=== PATIENT | female | born 1970 | race African-American/Black ===

== ENCOUNTER 2023-11-20 10:25 | Emergency (ER) | payer MEDICARE, MEDICAID ==
[~2023-11-20] VITALS: Ht 162.6 cm; Wt 74.9 kg
[~2023-11-20 10:25] MED LIST: ASPI81CH43 PO
[2023-11-20 10:30] VITALS: BP 124/61; PULSE 91; RESP 20; O2SAT 98
[2023-11-20 10:41] LABS: Basophils # (auto) 0.1 10 ^3/uL (0-0.2); Eosinophils # (auto) 0 10 ^3/uL (0-0.8); Eosinophils % (auto) 0.4 % (0.0-7.0); Hematocrit 45.5 % (36.0-46.0); Hemoglobin 15.2 g/dL (12.2-16.2); Lymphocytes # (auto) 2.3 10 ^3/uL (0.4-5.4); Lymphocytes % (auto) 25.6 % (10.0-50.0); Mean Corpuscular Hemoglobin 27.5 pg (28.0-32.0); Mean Corpuscular Hgb Conc. 33.3 g/dL (32.0-36.0); Mean Corpuscular Volume 82.7 fL (80.0-100.0); Monocytes # (auto) 0.6 10 ^3/uL (0-1.3); Monocytes % (auto) 6.8 % (0.0-12.0); Neutrophils % (auto) 66.2 % (37.0-80.0); Nucleated Red Blood Cells % 0.1 %; Red Blood Cells 5.51 10^6/uL (4.0-5.20); Red Cell Distribution Width 13.6 % (11.8-14.3)
[2023-11-20 10:58] LABS: Alanine Aminotransferase 14 U/L (7-40); Albumin 5.1 g/dL (3.2-4.8); Alkaline Phosphatase 105 U/L (46-116); Anion Gap 6 (5-15); Aspartate Aminotransferase 15 U/L (13-40); BUN/Creatinine Ratio 9.7 (10.0-20.0); Bilirubin, Total 0.7 mg/dL (0.2-1.0); Blood Urea Nitrogen 6 mg/dL (9-23); Calcium 11.2 mg/dL (8.7-10.4); Carbon Dioxide 30 mmol/L (20-30); Chloride 102 mmol/L (98-107); Glucose 103 mg/dL (74-106); Potassium 3.7 mmol/L (3.5-5.1); Sodium 138 mmol/L (136-145); Total Protein 8.1 g/dL (5.7-8.2)
== END 2023-11-20 13:34 | disposition left against medical advice (07) ==
LOC: ER 10:25
DX: R07.89 Other chest pain (principal); F41.9 Anxiety disorder, unspecified; Z53.21 Procedure and treatment not carried out due to patient leaving prior to being seen by health care provider
CPT/HCPCS: 36415; 80053; 83880; 84484; 85025; 93005

== ENCOUNTER 2024-04-09 09:42 | Emergency (ER) | payer OTHER, MEDICAID ==
[~2024-04-09] VITALS: Ht 162.6 cm; Wt 72.6 kg
[2024-04-09 09:56] VITALS: BP 150/83; PULSE 90; RESP 18; O2SAT 98
== END 2024-04-09 10:55 | disposition left against medical advice (07) ==
LOC: ER 09:42
DX: R06.02 Shortness of breath (principal); Z53.21 Procedure and treatment not carried out due to patient leaving prior to being seen by health care provider

== ENCOUNTER 2024-04-15 19:50 | Emergency (ER) | payer MEDICARE, MEDICAID ==
[~2024-04-15] VITALS: Ht 162.6 cm; Wt 72.7 kg
[2024-04-15 20:08] VITALS: BP 142/85; PULSE 91; RESP 18; O2SAT 98
== END 2024-04-15 20:59 | disposition left against medical advice (07) ==
LOC: ER 19:50
DX: R42 Dizziness and giddiness (principal); Z53.21 Procedure and treatment not carried out due to patient leaving prior to being seen by health care provider

== ENCOUNTER 2024-07-22 13:46 | Emergency (ER) | payer MEDICARE, MEDICAID ==
[~2024-07-22] VITALS: Ht 162.6 cm; Wt 68.0 kg
[2024-07-22 14:06] VITALS: BP 141/92; PULSE 97; RESP 16; O2SAT 98
--- NOTE | 2024-07-22 14:36 | ED.PDOC ---
History of Present Illness HPI Comments No seen by provider Chief Complaint: Ingestion Time Seen by MD: 14:35 Primary Care Provider: SANGEETA Bingham Notes: Nurses Notes, Medications, Allergies Allergies: Coded Allergies: NO KNOWN ALLERGIES (Unverified , 04/13/11) Home Meds Reported Medications Aspirin (Asa) 81 Mg Ch, 162 MG PO DAILY 04/13/11 Mode of Arrival: Ambulatory Past Medical History PAST MEDICAL HISTORY: Denies Surgical History: Denies all surgeries Family History Family History: No family hx of Cancer, No family hx of DM, No family hx of HTN, No family hx of Stroke Social History Smoker: Cigarettes Alcohol: Occasionally Drugs: Denies Drug Use Lives In: Home Physical Exam General Appearance: No Apparent Distress, Normal HEENT: Normal ENT Inspection, Pharynx Normal, TMs Normal Neck: Full Range of Motion, Non-Tender, Normal, Normal Inspection Respiratory: Chest Non-Tender, Lungs Clear, No Accessory Muscle Use, No Respiratory Distress, Normal Breath Sounds Cardiovascular: No Edema, No JVD, No Murmur, No Gallop, Normal Peripheral Pulses, Regular Rate/Rhythm Breast Exam: Deferred Gastrointestinal: No Organomegaly, Non Tender, No Pulsatile Mass, Normal Bowel Sounds, Soft Genitalia: Deferred Pelvic: Deferred Rectal: Deferred Extremities: No calf tenderness, Normal capillary refill, Normal inspection, Normal range of motion, Non-tender, No pedal edema Musculoskeletal : Apperance: Normal Neurologic: Alert, shoemaker custom II-XII nml as Tested, No Motor Deficits, Normal Affect, Normal Mood, No Sensory Deficits Cerebellar Function: Normal Reflexes: Normal Skin: Dry, Normal Color, Warm Lymphatic: No Adenopathy Was a procedure done? Was a procedure done?: No Differential Dx Considerations may include: na X-Ray, Labs, Meds, VS Vital Signs Date Time Temp Pulse Resp B/P (MAP) Pulse Ox O2 Delivery O2 Flow Rate FiO2 07/22/24 14:06 99.4 97 16 141/92 (108) 98 Time of 1ST Reevaluation: 08:19 Reevaluation 1ST: Improved Patient Education/Counseling: Diagnosis, Treatment Family Education/Counseling: Diagnosis, Treatment Departure 1 Departure Time of Disposition: 08:19 Impression: Primary Impression: Patient left without being seen Disposition: LEFT WITHOUT BEING SEEN Condition: Other Critical Care Note Critical Care Time?: No Stability Stability form required: No Heart Score Heart Score: Heart Score Response (Comments) Value History N/A 0 EKG N/A 0 Age N/A 0 Risk Factors N/A 0 Troponin N/A 0 Total 0 INDIRA GOODEN NP Jul 22, 2024 14:36
== END 2024-07-22 15:13 | disposition left against medical advice (07) ==
LOC: ER 13:50
DX: R45.0 Nervousness (principal); T40.5X5A Adverse effect of cocaine, initial encounter; Z53.21 Procedure and treatment not carried out due to patient leaving prior to being seen by health care provider; X58.XXXA Exposure to other specified factors, initial encounter; Y93.89 Activity, other specified; Y92.89 Other specified places as the place of occurrence of the external cause; Y99.8 Other external cause status

== ENCOUNTER 2024-08-04 05:43 | Emergency (ER) | payer OTHER, MEDICAID ==
[~2024-08-04] VITALS: Ht 154.9 cm; Wt 70.1 kg
[2024-08-04 05:52] VITALS: BP 137/89; PULSE 100; RESP 16; O2SAT 98
== END 2024-08-04 08:31 | disposition left against medical advice (07) ==
LOC: ER 05:43
DX: R22.42 Localized swelling, mass and lump, left lower limb (principal); Z53.21 Procedure and treatment not carried out due to patient leaving prior to being seen by health care provider

== ENCOUNTER 2024-08-25 09:06 | Emergency (ER) | payer MEDICARE, MEDICAID ==
[~2024-08-25] VITALS: Ht 162.6 cm; Wt 77.0 kg
[2024-08-25 09:06] VITALS: BP 132/83; RESP 16; O2SAT 99
[2024-08-25 09:11] VITALS: PULSE 89
--- NOTE | 2024-08-25 09:13 | ECG ---
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
== END 2024-08-25 10:46 | disposition left against medical advice (07) ==
LOC: ER 09:06
DX: R00.2 Palpitations (principal); F41.8 Other specified anxiety disorders; Z53.21 Procedure and treatment not carried out due to patient leaving prior to being seen by health care provider
CPT/HCPCS: 93005

== ENCOUNTER 2024-09-24 03:28 | Emergency (ER) | payer MEDICARE, MEDICAID ==
[~2024-09-24] VITALS: Ht 162.6 cm; Wt 72.5 kg
[2024-09-24 03:43] VITALS: BP 142/85; PULSE 83; RESP 16; O2SAT 98
== END 2024-09-24 04:16 | disposition left against medical advice (07) ==
LOC: ER 03:28
DX: R53.1 Weakness (principal); Z53.21 Procedure and treatment not carried out due to patient leaving prior to being seen by health care provider

== ENCOUNTER 2025-01-10 15:07 | Emergency (ER) | payer MEDICARE, MEDICAID ==
[~2025-01-10] VITALS: Ht 162.6 cm; Wt 86.0 kg
[2025-01-10 15:07] VITALS: BP 151/108; TEMP 97.9
[2025-01-10 15:16] VITALS: PULSE 85
[2025-01-10 15:20] VITALS: RESP 20; O2SAT 97
--- NOTE | 2025-01-10 15:20 | ED.PDOC ---
History of Present Illness Chief Complaint: Shortness of Breath Comments pt reports feeling sob, palpitation, weak after using cocaine " all night." pt also smoked marijuana, and tobacco. no cp Time Seen by MD: 15:08 Primary Care Provider: NONE Reviewed Notes: Nurses Notes Allergies: Uncoded Allergies: FLGYL (Allergy, Unknown, 08/25/24) Home Meds Reported Medications Aspirin (Asa) 81 Mg Ch, 162 MG PO DAILY 04/13/11 Information Source: Patient Mode of Arrival: Ambulatory Severity: Mild Timing: Hours Duration: Since onset Past Medical History Past Medical History (Other): anxiety Surgical History: Denies all surgeries DIRECTOR OF FIELD COORDINATION History: No Pertinent DIRECTOR OF FIELD COORDINATION History Family History Family History: No family hx of Cancer, No family hx of DM, No family hx of HTN, No family hx of Stroke Social History Smoker: Cigarettes Alcohol: Occasionally Drugs: Denies Drug Use Lives In: Home Constitutional: reports: weakness; denies: chills, diaphoresis, fatigue, fever, malaise, sweats, others EENTM: denies: blurred vision, double vision, ear bleeding, ear discharge, ear drainage, ear pain, ear ringing, eye pain, eye redness, hearing loss, mouth pain, mouth swelling, nasal discharge, nose bleeding, nose congestion, nose pain, photophobia, tearing, throat pain, throat swelling, voice changes, others Respiratory: reports: SOB at rest; denies: cough, hemoptysis, orthopnea, shortness of breath, SOB with excertion, stridor, wheezing, others Cardiovascular: reports: palpitations; denies: chest pain, dizzy spells, diaphoresis, Dyspnea on exertion, edema, irregular heart beat, left arm pain, lightheadedness, PND, syncope, others Gastrointestinal: denies: abdomen distended, abdominal pain, blood streaked bowels, constipated, diarrhea, dysphagia, difficulty swallowing, hematemesis, melena, nausea, poor appetite, poor fluid intake, rectal bleeding, rectal pain, vomiting, others Genitourinary: denies: abnormal vagina bleeding, burning, dyspareunia, dysuria, flank pain, frequency, hematuria, incontinence, pain, , vagina discharge, urgency, others Neurological: denies: dizziness, fainting, headache, left sided numbness, left sided weakness, numbness, paresthesia, pre-existing deficit, right sided numbness, right sided weakness, seizure, speech problems, tingling, tremors, weakness, others Musculoskeletal: denies: back pain, gout, joint pain, joint swelling, muscle pain, muscle stiffness, neck pain, others Integumetry: denies: bruises, change in color, change in hair/nails, dryness, laceration, lesions, lumps, rash, wounds, others Allergic/Immunocompromised: denies: Difficulty Healing, Frequent Infections, Hives, Itching, others Hematologic/Lymphatic: denies: anemia, blood clots, easy bleeding, easy bruising, swollen glands, others Endocrine: denies: excessive hunger, excessive sweating, excessive thirst, excessive urination, flushing, intolerance to cold, intolerance to heat, unexplained weight gain, unexplained weight loss, others Psychiatric: denies: anxiety, bipolar disorder, depression, hopeless, panic disorder, schizophrenia, sleepless, suicidal, others Physical Exam General Appearance: No Apparent Distress, Normal HEENT: Normal ENT Inspection, Pharynx Normal, TMs Normal Neck: Full Range of Motion, Non-Tender, Normal, Normal Inspection Respiratory: Chest Non-Tender, Lungs Clear, No Accessory Muscle Use, No Respiratory Distress, Normal Breath Sounds Cardiovascular: No Edema, No JVD, No Murmur, No Gallop, Normal Peripheral Pulses, Regular Rate/Rhythm Breast Exam: Deferred Gastrointestinal: No Organomegaly, Non Tender, No Pulsatile Mass, Normal Bowel Sounds, Soft Genitalia: Deferred Pelvic: Deferred Rectal: Deferred Extremities: No calf tenderness, Normal capillary refill, Normal inspection, Normal range of motion, Non-tender, No pedal edema Musculoskeletal : Apperance: Normal Neurologic: Alert, intermediate manager II-XII nml as Tested, No Motor Deficits, Normal Affect, Normal Mood, No Sensory Deficits Cerebellar Function: Normal Reflexes: Normal Skin: Dry, Normal Color, Warm Lymphatic: No Adenopathy Was a procedure done? Was a procedure done?: No Differential Dx Considerations may include: acs, anxiety, arrhythmias, pneumonia. ptx X-Ray, Labs, Meds, VS Vital Signs Date Time Temp Pulse Resp B/P (MAP) Pulse Ox O2 Delivery O2 Flow Rate FiO2 01/10/25 15:20 20 97 Room Air* 0 21 01/10/25 15:16 85 01/10/25 15:07 97.9 86 20 145/101 (116) 97 97.9 151/108 (122) Time of 1ST Reevaluation: 15:40 Reevaluation 1ST: Unchanged Time of 2ND Reevaluation: 16:28 Reevaluation 2ND: pt eloped Patient Education/Counseling: Diagnosis, Treatment, Prognosis, Need For Follow Up Family Education/Counseling: No Family Present Departure 1 Departure Time of Disposition: 16:29 Impression: Primary Impression: Substance abuse Additional Impression: Cocaine abuse Disposition: 07 LEFT AWOL/ELOPED Condition: Other (unknown) Critical Care Note Critical Care Time?: Yes (55 min-critical care time only) Critical care comment: Due to concerns for patients condition deteriorating, the care required my highest level of attention and readiness to intervene. I assessed the patient, reviewed the medical records, ordered the appropriate tests and treatments, then reassessed for results and responsiveness. I communicated with medical personnel and consultants and formulated a plan of care. Total critical care time excludes any procedures Stability Stability form required: No Heart Score Heart Score: Heart Score Response (Comments) Value History Slightly Suspicious 0 EKG Normal 0 Age 45-64 1 Risk Factors No known risk factors 0 Troponin N/A 0 Total 1 RA HERMAN MD Jan 10, 2025 15:20
--- NOTE | 2025-01-10 15:57 | DVH ---
EXAM: XY CHEST PORTABLE TECHNIQUE: Single frontal chest radiograph CLINICAL HISTORY: sob COMPARISON: None Findings/Impression: Frontal chest radiograph demonstrates no acute osseous or superficial soft tissue abnormalities. The trachea is midline. The cardiac silhouette and mediastinum are within normal limits. No pneumothorax, pleural effusions, or consolidations.
--- NOTE | 2025-01-12 12:16 | ECG ---
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
== END 2025-01-10 16:28 | disposition left against medical advice (07) ==
LOC: ER 15:09
DX: F14.10 Cocaine abuse, uncomplicated (principal); F17.210 Nicotine dependence, cigarettes, uncomplicated; F41.9 Anxiety disorder, unspecified; Z79.82 Long term (current) use of aspirin
CPT/HCPCS: 71045; 93005

== ENCOUNTER 2025-04-08 09:13 | Emergency (ER) | payer MEDICARE, MEDICAID | END 2025-04-08 10:15 | disposition left against medical advice (07) | LOC: ER 09:13 | DX: F41.9 Anxiety disorder, unspecified (principal); Z53.21 Procedure and treatment not carried out due to patient leaving prior to being seen by health care provider ==

== ENCOUNTER 2025-04-08 11:07 | Emergency (ER) | payer MEDICARE, MEDICAID ==
[~2025-04-08] VITALS: Ht 162.6 cm; Wt 72.2 kg
[2025-04-08 11:34] VITALS: BP 131/90; RESP 18; TEMP 97.2; O2SAT 95
[2025-04-08] MEDS ORDERED: LORazepam 2MG/ML-1ML VIAL IV ONE (11:45)
[2025-04-08] MEDS ORDERED: SODIUM CHLORIDE 0.9% 1,000 ML IV ONE (11:45)
--- NOTE | 2025-04-08 11:47 | ED.PDOC ---
SOB-HPI HPI Comments A 54 year-old female, with a PMHX of Anxiety, presents to the ED with a chief complaint of Anxiety with associated weakness as of today. Patient denies recently taking medication for Anxiety and additionally reports doing cocaine hours ago. Patient has no further complaints at this time and otherwise denies further associated symptoms of N/V/D, fever, chills, dizziness, chest pain, or palpitations. Chief Complaint: Anxiety Time Seen by MD: 11:37 Primary Care Provider: JUDY Bingham notes: Medications, Allergies Information Source: Patient Mode of Arrival: Ambulatory Severity: Moderate Timing: Hours Duration: Since onset History of: Anxiety Prehospital treatment: None Associated Signs and Symptoms: Anxiety Past Medical History PAST MEDICAL HISTORY: Anxiety Surgical History: Denies all surgeries MACHINE MAINTENANCE SUPERVISOR History: No Pertinent MACHINE MAINTENANCE SUPERVISOR History Family History Family History: No family hx of Cancer, No family hx of DM, No family hx of HTN, No family hx of Stroke Social History Smoker: Cigarettes Alcohol: Occasionally Drugs: Cocaine Lives In: Home Constitutional: denies: chills, diaphoresis, fatigue, fever, malaise, sweats, weakness, others EENTM: denies: blurred vision, double vision, ear bleeding, ear discharge, ear drainage, ear pain, ear ringing, eye pain, eye redness, hearing loss, mouth pain, mouth swelling, nasal discharge, nose bleeding, nose congestion, nose pain, photophobia, tearing, throat pain, throat swelling, voice changes, others Respiratory: reports: others (PER HPI ); denies: cough, hemoptysis, orthopnea, SOB at rest, shortness of breath, SOB with excertion, stridor, wheezing Cardiovascular: denies: chest pain, dizzy spells, diaphoresis, Dyspnea on exertion, edema, irregular heart beat, left arm pain, lightheadedness, palpitations, PND, syncope, others Gastrointestinal: denies: abdomen distended, abdominal pain, blood streaked bowels, constipated, diarrhea, dysphagia, difficulty swallowing, hematemesis, melena, nausea, poor appetite, poor fluid intake, rectal bleeding, rectal pain, vomiting, others Genitourinary: denies: abnormal vagina bleeding, burning, dyspareunia, dysuria, flank pain, frequency, hematuria, incontinence, pain, , vagina discharge, urgency, others Neurological: denies: dizziness, fainting, headache, left sided numbness, left sided weakness, numbness, paresthesia, pre-existing deficit, right sided numbness, right sided weakness, seizure, speech problems, tingling, tremors, weakness, others Musculoskeletal: denies: back pain, gout, joint pain, joint swelling, muscle pain, muscle stiffness, neck pain, others Integumetry: denies: bruises, change in color, change in hair/nails, dryness, laceration, lesions, lumps, rash, wounds, others Allergic/Immunocompromised: denies: Difficulty Healing, Frequent Infections, Hives, Itching, others Hematologic/Lymphatic: denies: anemia, blood clots, easy bleeding, easy bruising, swollen glands, others Endocrine: denies: excessive hunger, excessive sweating, excessive thirst, excessive urination, flushing, intolerance to cold, intolerance to heat, unexplained weight gain, unexplained weight loss, others Psychiatric: denies: anxiety, bipolar disorder, depression, hopeless, panic disorder, schizophrenia, sleepless, suicidal, others All Other Systems: Reviewed and Negative Physical Exam General Appearance: Mild Distress, Normal HEENT: Normal ENT Inspection, Pharynx Normal, TMs Normal Neck: Full Range of Motion, Non-Tender, Normal, Normal Inspection Respiratory: Chest Non-Tender, Lungs Clear, No Accessory Muscle Use, No Respiratory Distress, Normal Breath Sounds Cardiovascular: No Edema, No JVD, No Murmur, No Gallop, Normal Peripheral Pulses, Regular Rate/Rhythm Breast Exam: Deferred Gastrointestinal: No Organomegaly, Non Tender, No Pulsatile Mass, Normal Bowel Sounds, Soft Genitalia: Deferred Pelvic: Deferred Rectal: Deferred Extremities: No calf tenderness, Normal capillary refill, Normal inspection, Normal range of motion, Non-tender, No pedal edema Musculoskeletal : Apperance: Normal Neurologic: Alert, consumer product advisor II-XII nml as Tested, No Motor Deficits, Normal Affect, Normal Mood, No Sensory Deficits Cerebellar Function: Normal Reflexes: Normal Skin: Dry, Normal Color, Warm Lymphatic: No Adenopathy EKG EKG : Pulse Rate (adult): 86 [place]: Normal Cardiac Rhythm: NSR Was a procedure done? Was a procedure done?: No Differential Dx Differential Diagnosis: Anxiety, Asthma X-Ray, Labs, Meds, VS Vital Signs Date Time Temp Pulse Resp B/P (MAP) Pulse Ox O2 Delivery O2 Flow Rate FiO2 04/08/25 11:50 86 04/08/25 11:47 86 04/08/25 11:34 97.2 94 18 131/90 (104) 95 97.2 04/08/25 11:34 18 95 Room Air* 0 21 X-Ray, Labs, Meds, VS Comment A 54 year-old female, with a PMHX of Anxiety, presents to the ED with a chief complaint of Anxiety with associated weakness as of today. Patient arrives alert and oriented, ABC's intact, afebrile, vital signs stable, saturating well in room air Peripheral IV insertion+ labs were ordered. CBC was ordered to exclude anemia, blood loss, or infection. BMP was ordered to exclude electrolyte abnormalities, renal failure, dehydration, hyperglycemia Urinalysis was ordered to rule out UTI or hematuria. Labs in the ED showed (pertinent+ and then pertinent-) Patient eloped from the emergency room Time of 1ST Reevaluation: 12:14 Reevaluation 1ST: Unchanged Patient Education/Counseling: Diagnosis, Treatment Family Education/Counseling: No Family Present SEPSIS Sepsis Screen Physician Orders Urinalysis (04/08/25 11:40) Drug Screen (04/08/25 11:40) Chest Xray 1 View (04/08/25 11:40) [place]ock Iv (04/08/25 ) Vital Signs Date Time Temp Pulse Resp B/P (MAP) Pulse Ox O2 Delivery O2 Flow Rate FiO2 04/08/25 11:50 86 04/08/25 11:47 86 04/08/25 11:34 97.2 94 18 131/90 (104) 95 97.2 04/08/25 11:34 18 95 Room Air* 0 21 Departure 1 Departure Time of Disposition: 12:42 Impression: Primary Impression: Cocaine-induced anxiety disorder Additional Impressions: Cocaine use Eloped from emergency department Disposition: 07 LEFT AWOL/ELOPED Condition: Poor Discharged With: Self Critical Care Note Critical Care Time?: No Stability Stability form required: No Heart Score Heart Score: Heart Score Response (Comments) Value History N/A 0 EKG N/A 0 Age N/A 0 Risk Factors N/A 0 Troponin N/A 0 Total 0 I personally scribed for INDIRA GOODEN NP ([email or web address]) on 04/08/25 at 11:47. Electronically submitted by Ginger Edouard ([email or web address]). I personally scribed for INDIRA GOODEN NP ([email or web address]) on 04/08/25 at 11:50. Electronically submitted by Ginger Edouard ([email or web address]). INDIRA GOODEN NP Apr 08, 2025 11:47
--- NOTE | 2025-04-08 11:49 | ECG ---
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
[2025-04-08 11:50] VITALS: PULSE 86
--- NOTE | 2025-04-08 12:11 | DVH ---
EXAM: XY CHEST XRAY 1 VIEW Indication:pain r/o serious pathology Technique: Single frontal view of the chest was obtained Comparison: XY CHEST PORTABLE on DOS: 01/10/25 FINDINGS: Lines and Tubes: None Lungs: No focal consolidation. Pleura: No effusion. No pneumothorax. Cardiomediastinal contours: Unremarkable Bones: No acute osseous abnormality. IMPRESSION: No acute cardiopulmonary disease.
== END 2025-04-08 12:41 | disposition left against medical advice (07) ==
LOC: ER 11:07
DX: F14.980 Cocaine use, unspecified with cocaine-induced anxiety disorder (principal); F17.210 Nicotine dependence, cigarettes, uncomplicated; Z79.899 Other long term (current) drug therapy
CPT/HCPCS: 71045; 93005

== ENCOUNTER 2025-04-15 11:57 | Emergency (ER) | payer MEDICARE, MEDICAID ==
[~2025-04-15] VITALS: Ht 162.6 cm; Wt 70.0 kg
[2025-04-15 12:03] VITALS: BP 150/96; RESP 19; TEMP 97.9; O2SAT 100
[2025-04-15 12:47] VITALS: PULSE 82
--- NOTE | 2025-04-15 12:47 | ED.PDOC ---
History of Present Illness HPI Comments A 54-YEAR-OLD FEMALE PRESENTS TO ER FOR ANXIETY REACTION AND CHEST TIGHTNESS. PT STATES SHE USED COCAINE INTERMITTENT FOR 15 YEARS. RECENTLY, SHE IS UNDER A LOT OF STRESS AND SHE STARTED USING COCAINE AGAIN LAST NIGHT. AFTER THAT, SHE STARTED WEAKNESS, CHEST TIGHTNESS AND HANDS NUMBNESS AND TINGLING SENSATION. SHE HAS HX OF ANXIETY AND COCAINE USING AGGRAVATED HER ANXIETY REACTION. PT DENIES FEVER, SOB, NAUSEA, VOMITING, HEADACHE, DIZZINESS AND OTHER COMPLAINTS. NO OTHER SYMPTOMS REPORTED AT THIS TIME OF CARE. SHE HAS SCHEDULED TO SEE HER PCP 1:30PM THIS AFTERNOON. Chief Complaint: Anxiety Time Seen by MD: 12:00 Primary Care Provider: JUDY Reviewed Notes: Nurses Notes, Medications, Allergies Allergies: Coded Allergies: Metronidazole (Verified Allergy, Unknown, 03/06/25) Uncoded Allergies: FLGYL (Allergy, Unknown, 08/25/24) Home Meds Reported Medications Aspirin (Asa) 81 Mg Ch, 162 MG PO DAILY 04/13/11 Information Source: Patient Mode of Arrival: Ambulatory Severity: Mild Timing: Hours Duration: Since onset, Hours Prehospital treatment: None Medication Refill: For: Other (ANXIETY WITH CHEST TIGHTNESS POST COCAINE USING ) Past Medical History PAST MEDICAL HISTORY: Anxiety Surgical History: Denies all surgeries 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 FARMWORKER History: No Pertinent 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 FARMWORKER History Family History Family History: No family hx of Cancer, No family hx of DM, No family hx of HTN, No family hx of Stroke Social History Smoker: Cigarettes Alcohol: Occasionally Drugs: Cocaine Lives In: Home Constitutional: reports: others (ANXIOUS); denies: chills, diaphoresis, fatigue, fever, malaise, sweats, weakness EENTM: denies: blurred vision, double vision, ear bleeding, ear discharge, ear drainage, ear pain, ear ringing, eye pain, eye redness, hearing loss, mouth pain, mouth swelling, nasal discharge, nose bleeding, nose congestion, nose pain, photophobia, tearing, throat pain, throat swelling, voice changes, others Respiratory: denies: cough, hemoptysis, orthopnea, SOB at rest, shortness of breath, SOB with excertion, stridor, wheezing, others Cardiovascular: reports: chest pain; denies: dizzy spells, diaphoresis, Dyspnea on exertion, edema, irregular heart beat, left arm pain, lightheadedness, palpitations, PND, syncope, others Gastrointestinal: denies: abdomen distended, abdominal pain, blood streaked bowels, constipated, diarrhea, dysphagia, difficulty swallowing, hematemesis, melena, nausea, poor appetite, poor fluid intake, rectal bleeding, rectal pain, vomiting, others Genitourinary: denies: abnormal vagina bleeding, burning, dyspareunia, dysuria, flank pain, frequency, hematuria, incontinence, pain, , vagina discharge, urgency, others Neurological: reports: tingling; denies: dizziness, fainting, headache, left sided numbness, left sided weakness, numbness, paresthesia, pre-existing deficit, right sided numbness, right sided weakness, seizure, speech problems, tremors, weakness, others Musculoskeletal: denies: back pain, gout, joint pain, joint swelling, muscle pain, muscle stiffness, neck pain, others Integumetry: denies: bruises, change in color, change in hair/nails, dryness, laceration, lesions, lumps, rash, wounds, others Allergic/Immunocompromised: denies: Difficulty Healing, Frequent Infections, Hives, Itching, others Hematologic/Lymphatic: denies: anemia, blood clots, easy bleeding, easy bruising, swollen glands, others Endocrine: denies: excessive hunger, excessive sweating, excessive thirst, excessive urination, flushing, intolerance to cold, intolerance to heat, unexplained weight gain, unexplained weight loss, others Psychiatric: reports: anxiety; denies: bipolar disorder, depression, hopeless, panic disorder, schizophrenia, sleepless, suicidal, others All Other Systems: Reviewed and Negative Physical Exam General Appearance: Mild Distress, Normal, Other (ANXIOUS ) HEENT: Normal ENT Inspection, PERRL/EOMI, Pharynx Normal, TMs Normal Neck: Full Range of Motion, Non-Tender, Normal, Normal Inspection Respiratory: Chest Non-Tender, Lungs Clear, No Accessory Muscle Use, No Resp iratory Distress, Normal Breath Sounds Cardiovascular: No Edema, No JVD, No Murmur, No Gallop, Normal Peripheral Pulses, Regular Rate/Rhythm Breast Exam: Deferred Gastrointestinal: No Organomegaly, Non Tender, No Pulsatile Mass, Normal Bowel Sounds, Soft Genitalia: Deferred Pelvic: Deferred Rectal: Deferred Extremities: No calf tenderness, Normal capillary refill, Normal inspection, Normal range of motion, Non-tender, No pedal edema Musculoskeletal : Apperance: Normal 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 Was a procedure done?: No EKG EKG : Pulse Rate (adult): 82 [place]: Normal Block: None Hypertrophy: None ST: Normal Differential Dx Considerations may include: ANXIETY REACTION, [place], COCAINE ABUSE X-Ray, Labs, Meds, VS Vital Signs Date Time Temp Pulse Resp B/P (MAP) Pulse Ox O2 Delivery O2 Flow Rate FiO2 04/15/25 12:47 82 04/15/25 12:33 82 04/15/25 12:03 97.9 104 19 150/96 100 97.9 Lab Test 04/15/25 12:14 Range/Units Urine Opiates Screen Neg NEGATIVE Urine Fentanyl Screen Neg NEGATIVE Urine Barbiturates Screen Neg NEGATIVE Urine Phencyclidine Screen Neg NEGATIVE Urine Amphetamines Screen Neg NEGATIVE Urine Benzodiazepines Screen Neg NEGATIVE Urine Cocaine Screen Pos NEGATIVE Urine Cannabinoids Screen Pos NEGATIVE X-Ray, Labs, Meds, VS Comment EXTERNAL MEDICAL RECORDS REVIEWED: [NONE] INDEPENDENT HISTORIANS: [NONE] SOCIAL DETERMINANTS OF HEALTH: [NONE] LABS ORDERED: TSH, UDS, UA, CBC, BMP, TROPONIN REVIEWED AND INTERPRETED RESULTS: NONE IMAGING ORDERED: NONE TREATMENTS ORDERED: NONE PROCEDURES PERFORMED: NONE CRITICAL CARE TIME: NONE 13:15: CALLED PT THREE TIMES, NO ANSWER. ELOPED. Time of 1ST Reevaluation: 13:23 Reevaluation 1ST: Unchanged Patient Education/Counseling: Diagnosis, Treatment Family Education/Counseling: Diagnosis, Treatment, No Family Present SEPSIS Sepsis Screen Date sepsis recognized/suspect: Apr 15, 2025 Time Sepsis recognized/suspect: 1203 Recent Procedure: No On Antibiotic Therapy: No Respiratory Rate >20: No Heart Rate >90: No Temp<36 C (96.8 F) or >38.3 C: No SBP <90 or MAP <65 mmHG: No New Acute Mental Status Change: No Is the patient on CPAP, BIPAP,: No Physician Orders Electrocardigram (04/15/25 12:14) Vital Signs Date Time Temp Pulse Resp B/P (MAP) Pulse Ox O2 Delivery O2 Flow Rate FiO2 04/15/25 12:47 82 04/15/25 12:33 82 04/15/25 12:03 97.9 104 19 150/96 100 97.9 Departure 1 Departure Time of Disposition: 13:23 Impression: Primary Impression: Cocaine-induced anxiety disorder Additional Impression: Polysubstance abuse Disposition: 07 LEFT AWOL/ELOPED Condition: Stable Critical Care Note Critical Care Time?: No Stability Stability form required: No Heart Score Heart Score: Heart Score Response (Comments) Value History N/A 0 EKG N/A 0 Age N/A 0 Risk Factors N/A 0 Troponin N/A 0 Total 0 I personally scribed for GISSEL KATHLEEN ([email or web address]) on 04/15/25 at 13:12. Electronically submitted by Sukh Brady ([email or web address]). I personally scribed for GISSEL KATHLEEN ([email or web address]) on 04/15/25 at 13:21. Electronically submitted by Sukh Brady ([email or web address]). GISSEL KATHLEEN Apr 15, 2025 12:47
[2025-04-15 13:10] LABS: Cannabinoid Screen, Urine Pos (NEGATIVE)
[2025-04-15 13:11] LABS: Amphetamine Screen, Urine Neg (NEGATIVE); Barbiturate Scree,Urine Neg (NEGATIVE); Benzodiazephine Screen, Urine Neg (NEGATIVE); Cocaine Screen, Urine Pos (NEGATIVE); Opiate Scree,Urine Neg (NEGATIVE); Phencyclidine Screen, Urine Neg (NEGATIVE)
--- NOTE | 2025-04-16 06:25 | ECG ---
[facility] Test Date: 2025-04-15 Test Time: 12:33:07 Pat Name: KENISHA MCMILLAN Department: [facility] ED Patient ID: [id number] Room: Gender: F Director Of Aviation: EUGENIO : 1970 Requested By: GISSEL KATHLEEN Order Number: [id number] Reading MD: Al Dexter Measurements Intervals [place] Rate: 82 P: 58 MN: 158 QRS: 27 QRSD: 82 T: 26 QT: 356 QTc: 416 Interpretive Statements Sinus rhythm Probable left atrial enlargement Abnormal R-wave progression, early transition Electronically Signed On 04-16-2025 11:20:09 PDT by Al Dexter Please click the below link to view image of tracing.
== END 2025-04-15 13:29 | disposition left against medical advice (07) ==
LOC: ER 11:57
DX: F14.180 Cocaine abuse with cocaine-induced anxiety disorder (principal); F15.10 Other stimulant abuse, uncomplicated; F17.210 Nicotine dependence, cigarettes, uncomplicated; Z88.1 Allergy status to other antibiotic agents; Z79.899 Other long term (current) drug therapy
CPT/HCPCS: 80307; 93005

== ENCOUNTER 2025-04-20 10:35 | Emergency (ER) | payer BC, MEDICARE, MEDICAID ==
[~2025-04-20] VITALS: Ht 162.6 cm; Wt 65.0 kg
[2025-04-20 10:36] VITALS: BP 180/104; RESP 16; TEMP 97.8; O2SAT 95
--- NOTE | 2025-04-20 11:13 | ED.PDOC ---
HPI Comments This is a 54 year old female presenting to the ED with chief complaint of chest pain. Patient reports that she begun to experience chest tightness after using cocaine about 3 hours ago. Patient relays that she feels like her heart is pounding with associated SOB. Patient denies any numbness, weakness, tingling, dizziness, fever, or chills. Chief Complaint: Chest Pain Time Seen by MD: 11:12 Primary Care Provider: JUDY Reviewed Notes: Nurses Notes, Medications, Allergies Allergies: Coded Allergies: Metronidazole (Verified Allergy, Unknown, 03/06/25) Uncoded Allergies: FLGYL (Allergy, Unknown, 08/25/24) Home Meds Reported Medications Aspirin (Asa) 81 Mg Ch, 162 MG PO DAILY 04/13/11 Information Source: Patient Mode of Arrival: Ambulatory Severity: Moderate Timing: Hours Duration: Since onset Prehospital treatment: None Location: Chest (L) Radiation: No Radiation Quality: Tightness Onset: Other (After cocaine use) Cardiac Risk Factors: Drugs PE Risk Factors: None History of: Similar pain in past Past Medical History PAST MEDICAL HISTORY: Anxiety Surgical History: Denies all surgeries DYE WORKER History: No Pertinent DYE WORKER History Family History Family History: No family hx of Cancer, No family hx of DM, No family hx of HTN, No family hx of Stroke Social History Smoker: Cigarettes Alcohol: Occasionally Drugs: Cocaine Lives In: Home Constitutional: denies: chills, diaphoresis, fatigue, fever, malaise, sweats, weakness, others EENTM: denies: blurred vision, double vision, ear bleeding, ear discharge, ear drainage, ear pain, ear ringing, eye pain, eye redness, hearing loss, mouth pain, mouth swelling, nasal discharge, nose bleeding, nose congestion, nose pain, photophobia, tearing, throat pain, throat swelling, voice changes, others Respiratory: reports: shortness of breath; denies: cough, hemoptysis, orthopnea, SOB at rest, SOB with excertion, stridor, wheezing, others Cardiovascular: reports: chest pain, palpitations; denies: dizzy spells, diap horesis, Dyspnea on exertion, edema, irregular heart beat, left arm pain, lightheadedness, PND, syncope, others Gastrointestinal: denies: abdomen distended, abdominal pain, blood streaked bowels, constipated, diarrhea, dysphagia, difficulty swallowing, hematemesis, melena, nausea, poor appetite, poor fluid intake, rectal bleeding, rectal pain, vomiting, others Genitourinary: denies: abnormal vagina bleeding, burning, dyspareunia, dysuria, flank pain, frequency, hematuria, incontinence, pain, , vagina discharge, urgency, others Neurological: denies: dizziness, fainting, headache, left sided numbness, left sided weakness, numbness, paresthesia, pre-existing deficit, right sided numbness, right sided weakness, seizure, speech problems, tingling, tremors, weakness, others Musculoskeletal: denies: back pain, gout, joint pain, joint swelling, muscle pain, muscle stiffness, neck pain, others Integumetry: denies: bruises, change in color, change in hair/nails, dryness, laceration, lesions, lumps, rash, wounds, others Allergic/Immunocompromised: denies: Difficulty Healing, Frequent Infections, Hives, Itching, others Hematologic/Lymphatic: denies: anemia, blood clots, easy bleeding, easy bruising, swollen glands, others Endocrine: denies: excessive hunger, excessive sweating, excessive thirst, excessive urination, flushing, intolerance to cold, intolerance to heat, unexplained weight gain, unexplained weight loss, others Psychiatric: denies: anxiety, bipolar disorder, depression, hopeless, panic disorder, schizophrenia, sleepless, suicidal, others All Other Systems: Reviewed and Negative Physical Exam General Appearance: Moderate Distress, Normal HEENT: Normal ENT Inspection, Pharynx Normal, TMs Normal Neck: Full Range of Motion, Non-Tender, Normal, Normal Inspection Respiratory: Chest Non-Tender, Lungs Clear, No Accessory Muscle Use, No Respiratory Distress, Normal Breath Sounds Cardiovascular: No Edema, No JVD, No Murmur, No Gallop, Normal Peripheral Pulses, Regular Rate/Rhythm Breast Exam: Deferred Gastrointestinal: No Organomegaly, Non Tender, No Pulsatile Mass, Normal Bowel Sounds, Soft Genitalia: Deferred Pelvic: Deferred Rectal: Deferred Extremities: No calf tenderness, Normal capillary refill, Normal inspection, Normal range of motion, Non-tender, No pedal edema Musculoskeletal : Apperance: Normal 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 Was a procedure done?: No CP Differential Dx Differential Diagnosis: A-fib, A-Flutter, Angina, Anxiety / Panic Attack, Atrial Dysrhythmia, Electrolyte Disorder X-Ray, Labs, Meds, VS Vital Signs Date Time Temp Pulse Resp B/P (MAP) Pulse Ox O2 Delivery O2 Flow Rate FiO2 04/20/25 11:36 89 04/20/25 11:13 108 04/20/25 10:42 108 04/20/25 10:36 97.8 115 16 180/104 95 97.8 Lab Test 04/20/25 11:34 04/20/25 11:24 Range/Units Sodium Level 138 136-145 mmol/L Potassium Level 3.4 L 3.5-5.1 mmol/L Chloride Level 103 98-107 mmol/L Carbon Dioxide Level 23 20-31 mmol/L Anion Gap 12 5-15 Blood Urea Nitrogen 6 L 9-23 mg/dL Creatinine 0.62 0.550-1.02 mg/dL Glomerular Filtration Rate Calc 105 >90 mL/min BUN/Creatinine Ratio 9.7 L 10.0-20.0 Serum Glucose 116 H 74-106 mg/dL Calcium Level 9.5 8.7-10.4 mg/dL Troponin I High Sensitivity < 3 L </=34 ng/L Patient alert. Had cocaine. Vitals stable. Answering questions pain Cardiac marker within normal limits. Potassium slightly low. Was given potassium. Counseled patient on effects of using drugs. EKG reviewed does not show any acute changes. Explained to the patient. Was told to follow up with her primary care physician. Was told to come back if there is any problem. Time of 1ST Reevaluation: 12:09 Reevaluation 1ST: Unchanged Patient Education/Counseling: Diagnosis, Treatment Family Education/Counseling: No Family Present SEPSIS Sepsis Screen Date sepsis recognized/suspect: Apr 20, 2025 Time Sepsis recognized/suspect: 1041 Recent Procedure: No On Antibiotic Therapy: No Respiratory Rate >20: No Heart Rate >90: Yes Temp<36 C (96.8 F) or >38.3 C: No SBP <90 or MAP <65 mmHG: No New Acute Mental Status Change: No Is the patient on CPAP, BIPAP,: No Physician Orders Electrocardigram (04/20/25 10:46) Electrocardigram (04/20/25 11:46) Electrocardigram (04/20/25 13:46) Drug Screen (04/20/25 11:03) Vital Signs Date Time Temp Pulse Resp B/P (MAP) Pulse Ox O2 Delivery O2 Flow Rate FiO2 04/20/25 11:36 89 04/20/25 11:13 108 04/20/25 10:42 108 04/20/25 10:36 97.8 115 16 180/104 95 97.8 Departure 1 Departure Time of Disposition: 13:20 Impression: Primary Impression: Cocaine-induced anxiety disorder Additional Impressions: Musculoskeletal chest pain Hypokalemia Disposition: 01 HOME / SELF CARE / HOMELESS Condition: Good Discharged With: Self Critical Care Note Critical Care Time?: Yes (90 min-critical care time only) Stability Stability form required: No Heart Score Heart Score: Heart Score Response (Comments) Value History Highly Suspicious 2 EKG Normal 0 Age 45-64 1 Risk Factors 1 or 2 risk factors 1 Troponin Normal limit 0 Total 4 I personally scribed for HIEN PARIS MD ([email or web address]) on 04/20/25 at 11:13. Electronically submitted by Sukh Brady ([email or web address]). HIEN PARIS MD Apr 20, 2025 11:13
[2025-04-20] MEDS ORDERED: LORazepam 2MG/ML-1ML VIAL IV ONE (11:15)
[2025-04-20] MEDS ORDERED: SODIUM CHLORIDE 0.9% 1,000 ML IV ONE (11:15)
[2025-04-20 11:36] VITALS: PULSE 89
[2025-04-20 11:49] LABS: Chloride 103 mmol/L (98-107); Sodium 138 mmol/L (136-145)
[2025-04-20 11:50] LABS: Calcium 9.5 mg/dL (8.7-10.4); Potassium 3.4 mmol/L (3.5-5.1)
[2025-04-20 11:55] LABS: BUN/Creatinine Ratio 9.7 (10.0-20.0); Blood Urea Nitrogen 6 mg/dL (9-23); Glucose 116 mg/dL (74-106)
[2025-04-20 11:58] LABS: Anion Gap 12 (5-15); Carbon Dioxide 23 mmol/L (20-31)
[2025-04-20] MEDS ORDERED: POTASSIUM EFFERVESENT TAB 25 MEQ PO ONE (13:30)
--- NOTE | 2025-04-24 14:53 | ECG ---
[facility] Test Date: 2025-04-20 Test Time: 10:42:41 Pat Name: KENISHA MCMILLAN Department: [facility] ED Patient ID: [id number] Room: Gender: F Helicopter Specialist: EUGENIO : 1970 Requested By: HIEN PARIS Order Number: [id number] Reading MD: Al Dexter Measurements Intervals [place] Rate: 108 P: 51 MA: 149 QRS: 22 QRSD: 92 T: 7 QT: 341 QTc: 457 Interpretive Statements Sinus tachycardia Electronically Signed On 04-27-2025 17:17:09 PDT by Al Dexter Please click the below link to view image of tracing.
--- NOTE | 2025-04-24 14:54 | ECG ---
[facility] Test Date: 2025-04-20 Test Time: 11:36:12 Pat Name: KENISHA MCMILLAN Department: [facility] ED Patient ID: [id number] Room: Gender: F Conference Reservationist: EUGNEIO : 1970 Requested By: HIEN PARIS Order Number: [id number] Reading MD: Al Dexter Measurements Intervals [place] Rate: 89 P: 61 MN: 179 QRS: 25 QRSD: 84 T: 16 QT: 351 QTc: 428 Interpretive Statements Sinus rhythm Probable anteroseptal infarct, old Electronically Signed On 04-27-2025 17:17:52 PDT by Al Dexter Please click the below link to view image of tracing.
== END 2025-04-20 14:27 | disposition home or self-care (01) ==
LOC: ER 10:35
DX: F14.280 Cocaine dependence with cocaine-induced anxiety disorder (principal); M79.18 Myalgia, other site; E87.6 Hypokalemia; F41.9 Anxiety disorder, unspecified; F17.210 Nicotine dependence, cigarettes, uncomplicated; Z88.1 Allergy status to other antibiotic agents
CPT/HCPCS: 36415; 80048; 84484; 93005

== ENCOUNTER 2025-04-22 10:52 | Inpatient (IN) | payer BC, MEDICARE, MEDICAID ==
[~2025-04-22] VITALS: Ht 162.6 cm; Wt 70.7 kg
--- NOTE | 2025-04-22 11:18 | ED.PDOC ---
History of Present Illness HPI Comments This is a 54 years old female with past medical history of hypertension, polysubstance abuse disorder presented to the ED with a chief complaint of substernal chest pain with shortness of breath and lightheadedness since 1 hour prior to this visit. The patient stated that the chest pain is substernal, feels like heaviness and stabbing pain, 7/10 radiate to the back and right shoulder ,associated with shortness of breath. She also mentioned that she has intermittent chest pain for last 1 week every other day and came to the ER 1 week ago and left AMA. She denies fever, chills, blurred vision, abdominal pain, vomiting, dysuria, hematuria or any changes in bowel and bladder habit. 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 BL[employer]ST[employer]ING FELLER History Family History Family History: No family hx of Cancer, No family hx of DM, No family hx of HTN, No family hx of Stroke Social History Smoker: Cigarettes, Greater Than 1 Pack/Day Alcohol: Occasionally Drugs: Cocaine, Marijuana Lives In: Home Constitutional: denies: chills, diaphoresis, fatigue, fever, malaise, sweats, weakness, others EENTM: denies: blurred vision, double vision, ear bleeding, ear discharge, ear drainage, ear pain, ear ringing, eye pain, eye redness, hearing loss, mouth pain, mouth swelling, nasal discharge, nose bleeding, nose congestion, nose pain, photophobia, tearing, throat pain, throat swelling, voice changes, others Respiratory: reports: shortness of breath; denies: cough, hemoptysis, orthopnea, SOB at rest, SOB with excertion, stridor, wheezing, others Cardiovascular: reports: chest pain, lightheadedness; denies: dizzy spells, diaphoresis, Dyspnea on exertion, edema, irregular heart beat, left arm pain, palpitations, PND, syncope, others Gastrointestinal: denies: abdomen distended, abdominal pain, blood streaked bowels, constipated, diarrhea, dysphagia, difficulty swallowing, hematemesis, melena, nausea, poor appetite, poor fluid intake, rectal bleeding, rectal pain, vomiting, others Genitourinary: denies: abnormal vagina bleeding, burning, dyspareunia, dysuria, flank pain, frequency, hematuria, incontinence, pain, , vagina discharge, urgency, others Neurological: denies: dizziness, fainting, headache, left sided numbness, left sided weakness, numbness, paresthesia, pre-existing deficit, right sided nu mbness, right sided weakness, seizure, speech problems, tingling, tremors, weakness, others Musculoskeletal: denies: back pain, gout, joint pain, joint swelling, muscle pain, muscle stiffness, neck pain, others Integumetry: denies: bruises, change in color, change in hair/nails, dryness, laceration, lesions, lumps, rash, wounds, others Allergic/Immunocompromised: denies: Difficulty Healing, Frequent Infections, Hives, Itching, others Hematologic/Lymphatic: denies: anemia, blood clots, easy bleeding, easy bruising, swollen glands, others Endocrine: denies: excessive hunger, excessive sweating, excessive thirst, excessive urination, flushing, intolerance to cold, intolerance to heat, unexplained weight gain, unexplained weight loss, others Psychiatric: denies: anxiety, bipolar disorder, depression, hopeless, panic disorder, schizophrenia, sleepless, suicidal, others Physical Exam General Appearance: Mild Distress HEENT: Normal ENT Inspection, Pharynx Normal, TMs Normal Neck: Full Range of Motion, Non-Tender, Normal, Normal Inspection Respiratory: Chest Non-Tender, Lungs Clear, No Accessory Muscle Use, No Respiratory Distress, Normal Breath Sounds Cardiovascular: No Edema, No JVD, No Murmur, No Gallop, Normal Peripheral Pulses, Regular Rate/Rhythm Breast Exam: Deferred Gastrointestinal: No Organomegaly, Non Tender, No Pulsatile Mass, Normal Bowel Sounds, Soft Genitalia: Deferred Pelvic: Deferred Rectal: Deferred Extremities: No calf tenderness, Normal capillary refill, Normal inspection, Normal range of motion, Non-tender, No pedal edema Neurologic: NOT DONE Cerebellar Function: NOT DONE Reflexes: NOT DONE Skin: NOT DONE Peripheral Pulses: 2+ carotid (R), 2+ carotid (L), 2+ femoral (R), 2+ femoral (L), 2+ dorsalis pedis (R), 2+ dorsalis pedis (L), 2+ Radial (R), 2+ Radial (L), 2+ Brachial (R), 2+ Brachial (L) Lymphatic: NOT DONE Was a procedure done? Was a procedure done?: No EKG EKG : Pulse Rate (adult): 99 Cardiac Rhythm: NSR Comments Normal sinus rhythm with nonspecific ST-T changes Differential Dx Considerations may include: Cocaine induced chest pain, unstable angina, anxiety, panic attack X-Ray, Labs, Meds, VS Vital Signs Date Time Temp Pulse Resp B/P (MAP) Pulse Ox O2 Delivery O2 Flow Rate FiO2 04/22/25 11:00 90 04/22/25 10:53 97.8 92 16 137/87 99 97.8 Lab Test 04/22/25 11:36 Range/Units White Blood Count 7.9 4.4-10.8 10^3/uL Red Blood Count 5.43 H 4.0-5.20 10^6/uL Hemoglobin 15.2 12.2-16.2 g/dL Hematocrit 44.5 36.0-46.0 % Mean Corpuscular Volume 81.8 80.0-100.0 fL Mean Corpuscular Hemoglobin 27.9 L 28.0-32.0 pg Mean Corpuscular Hemoglobin Concent 34.1 32.0-36.0 g/dL Red Cell Distribution Width 13.7 11.8-14.3 % Platelet Count 305 140-450 10^3/uL Mean Platelet Volume 8.8 6.9-10.8 fL Neutrophils (%) (Auto) 63.2 37.0-80.0 % Lymphocytes (%) (Auto) 27.4 10.0-50.0 % Monocytes (%) (Auto) 8.2 0.0-12.0 % Eosinophils (%) (Auto) 0.3 0.0-7.0 % Basophils (%) (Auto) 0.9 0.0-2.0 % Neutrophils # (Auto) 5.0 1.6-8.6 10 ^3/uL Lymphocytes # (Auto) 2.2 0.4-5.4 10 ^3/uL Monocytes # (Auto) 0.6 0-1.3 10 ^3/uL Eosinophils # (Auto) 0 0-0.8 10 ^3/uL Basophils # (Auto) 0.1 0-0.2 10 ^3/uL Nucleated Red Blood Cells 0.2 % Sodium Level 138 136-145 mmol/L Potassium Level 3.7 3.5-5.1 mmol/L Chloride Level 102 98-107 mmol/L Carbon Dioxide Level 26 20-31 mmol/L Anion Gap 10 5-15 Blood Urea Nitrogen 9 9-23 mg/dL Creatinine 0.67 0.550-1.02 mg/dL Glomerular Filtration Rate Calc 103 >90 mL/min BUN/Creatinine Ratio 13.4 10.0-20.0 Serum Glucose 94 74-106 mg/dL Calcium Level 10.5 H 8.7-10.4 mg/dL Total Bilirubin 0.8 0.2-1.0 mg/dL Aspartate Amino Transferase (AST) 18 13-40 U/L Alanine Aminotransferase (ALT) 15 7-40 U/L Alkaline Phosphatase 108 46-116 U/L Troponin I High Sensitivity < 3 L </=34 ng/L Total Protein 7.7 5.7-8.2 g/dL Albumin 5.3 H 3.2-4.8 g/dL Plasma/Serum Blood Alcohol Pending Current Medications Medications (Trade) Dose Ordered Sig/Geovanna Route Start Time Stop Time Status Last Admin Aspirin 325 mg ONCE ONCE PO 04/22/25 11:15 04/22/25 11:16 DC 04/22/25 11:15 X-Ray, Labs, Meds, VS Comment CHEST RADIOGRAPH Indication: Chest Pain Technique: Single frontal view of the chest was obtained COMPARISON: XY CHEST XRAY 1 VIEW on DOS: 04/08/25, XY CHEST PORTABLE on DOS: 01/10/25 FINDINGS: Lines and Tubes: None Lungs: Clear Pleura: No effusion. No pneumothorax. Cardiomediastinal contours: Unremarkable Bones: Unremarkable IMPRESSION: No acute disease. Images Reviewed?: Images reviewed and evaluated by me Time of 1ST Reevaluation: 13:20 Reevaluation 1ST: Improved Patient Education/Counseling: Diagnosis, Treatment Family Education/Counseling: No Family Present Comments A 54-year-old female with past medical history of hypertension, anxiety and cocaine abuse disorder presented to the ED with a complaint of substernal chest pain with shortness of breath at diaphoresis for last 1 hours Patient was given aspirin 325 mg once and nitroglycerin 0.4 mg sublingually once Initial EKG reveals sinus rhythm with nonspecific ST-T changes and troponins were unremarkable The patient did mentioned she took cocaine 4 hours ago before coming to the ER and also she came to the ER 1 week ago with the same complaint. UDS and echocardiogram of the heart is pending. Regarding patient age and comorbidity and frequent attack of chest pain the patient needs inpatient admission for further evaluation of chest pain. Counseled patient regarding quit smoking, drug abuse and rehabilitation for more than 20 minutes. SEPSIS Sepsis Screen Date sepsis recognized/suspect: Apr 22, 2025 Time Sepsis recognized/suspect: 1053 Recent Procedure: No On Antibiotic Therapy: No Respiratory Rate >20: No Heart Rate >90: Yes Temp<36 C (96.8 F) or >38.3 C: No SBP <90 or MAP <65 mmHG: No New Acute Mental Status Change: No Is the patient on CPAP, BIPAP,: No Physician Orders Chest Portable (04/22/25 11:10) Comprehensive Metabolic Panel (04/22/25 11:10) Nitroglycerin Sublingual (Ntrostat Subli (04/23/25 10:00) Drug Screen (04/22/25 11:10) Blood Alcohol (04/22/25 11:10) Echo 2d Mode Cardiac Dop (04/22/25 11:10) Electrocardigram (04/22/25 13:02) Vital Signs Date Time Temp Pulse Resp B/P (MAP) Pulse Ox O2 Delivery O2 Flow Rate FiO2 04/22/25 11:00 90 04/22/25 10:53 97.8 92 16 137/87 99 97.8 Laboratory Tests Test 04/22/25 11:36 White Blood Count 7.9 10^3/uL (4.4-10.8) Medications Medications Dose Ordered Sig/Geovanna Route Start Time Stop Time Status Last Admin Dose Admin Aspirin 325 mg ONCE ONCE PO 04/22/25 11:15 04/22/25 11:16 DC 04/22/25 11:15 Departure 1 Departure Time of Disposition: 13:38 Impression: Primary Impression: Unstable angina Additional Impression: Polysubstance abuse Disposition: 30 STILL A PATIENT Admit to: Tele Condition: Guarded Critical Care Note Critical Care Time?: No Stability Stability form required: No YUSEFUS,SUBHA RESIDENT Apr 22, 2025 11:18
--- NOTE | 2025-04-22 11:34 | DVH ---
CHEST RADIOGRAPH Indication: Chest Pain Technique: Single frontal view of the chest was obtained COMPARISON: XY CHEST XRAY 1 VIEW on DOS: 04/08/25, XY CHEST PORTABLE on DOS: 01/10/25 FINDINGS: Lines and Tubes: None Lungs: Clear Pleura: No effusion. No pneumothorax. Cardiomediastinal contours: Unremarkable Bones: Unremarkable IMPRESSION: No acute disease.
[2025-04-22 12:07] LABS: Hematocrit 44.5 % (36.0-46.0); Hemoglobin 15.2 g/dL (12.2-16.2); Mean Corpuscular Hemoglobin 27.9 pg (28.0-32.0); Mean Corpuscular Volume 81.8 fL (80.0-100.0); Nucleated Red Blood Cells % 0.2 %
[2025-04-22 12:36] LABS: Alanine Aminotransferase 15 U/L (7-40); Alkaline Phosphatase 108 U/L (46-116); Carbon Dioxide 26 mmol/L (20-31); Chloride 102 mmol/L (98-107)
[2025-04-22 12:37] LABS: Anion Gap 10 (5-15); BUN/Creatinine Ratio 13.4 (10.0-20.0); Bilirubin, Total 0.8 mg/dL (0.2-1.0); Blood Urea Nitrogen 9 mg/dL (9-23); Glucose 94 mg/dL (74-106); Potassium 3.7 mmol/L (3.5-5.1); Sodium 138 mmol/L (136-145); Total Protein 7.7 g/dL (5.7-8.2)
[2025-04-22 12:38] LABS: Albumin 5.3 g/dL (3.2-4.8); Calcium 10.5 mg/dL (8.7-10.4)
--- NOTE | 2025-04-22 18:23 | DVHHPRES ---
History of Present Illness Resident Creating Document: THEO LAI DANIELLEMaida History of Present Illness This is a 54 years old female with past medical history of hypertension, polysubstance abuse disorder presented to the ED with a chief complaint of substernal chest pain with shortness of breath and lightheadedness since 1 hour prior to this visit. The patient stated that the chest pain is substernal, feels like heaviness and stabbing pain, 7/10 radiate to the back and right shoulder ,associated with shortness of breath. She also mentioned that she has intermittent chest pain for last 1 week every other day and came to the ER 1 week ago and left AMA. She denies fever, chills, blurred vision, abdominal pain, vomiting, dysuria, hematuria or any changes in bowel and bladder habit. Previous hospitalization: Patient has frequent ER visits due to chest discomfort which happened after using cocaine PMHx: Hypertension PSHx: Not significant Family history: No significant Social history: Smokes marijuana, cigarettes, cocaine, denies any other drug use Home medication: Does not take any medicine Allergic history: Flagyl Patient seen and examined at bedside. Patient is feeling better. But still complained of mild chest discomfort. Review of Systems Allergies: Coded Allergies: Metronidazole (Verified Allergy, Unknown, 03/06/25) Uncoded Allergies: FLGYL (Allergy, Unknown, 08/25/24) Exam Vital Signs Vital Signs Date Time Temp Pulse Resp B/P (MAP) Pulse Ox O2 Delivery O2 Flow Rate FiO2 04/22/25 13:40 99 04/22/25 10:53 97.8 16 137/87 99 97.8 Exam General Appearance: Alert, Oriented X3, Cooperative, No acute distress HEENT: Atraumatic, PERRLA, EOMI, Mucous membrane moist/pink Respiratory: Clear to auscultation, Normal air movement Cardiovascular: Regular rate, Normal S1, Normal S2, No murmurs, no chest wall tenderness Abdominal: Normal bowel sounds, Soft, No tenderness, No hepatospenomegaly, No masses Extremities: No clubbing, No cyanosis, No edema, Normal pulses, No tenderness/swelling Skin: No rashes, No breakdown, No significant lesion Neuro: Normal gait, Normal speech, Strength at 5/5 X4 ext, Normal tone, Sensation intact, Cranial nerves 3-12 NL, Reflexes 2+ Psych/Mental Status: Mental status NL, Mood NL Labs/Xrays Labs Test 04/22/25 11:36 Range/Units White Blood Count 7.9 4.4-10.8 10^3/uL Red Blood Count 5.43 H 4.0-5.20 10^6/uL Hemoglobin 15.2 12.2-16.2 g/dL Hematocrit 44.5 36.0-46.0 % Mean Corpuscular Volume 81.8 80.0-100.0 fL Mean Corpuscular Hemoglobin 27.9 L 28.0-32.0 pg Mean Corpuscular Hemoglobin Concent 34.1 32.0-36.0 g/dL Red Cell Distribution Width 13.7 11.8-14.3 % Platelet Count 305 140-450 10^3/uL Mean Platelet Volume 8.8 6.9-10.8 fL Neutrophils (%) (Auto) 63.2 37.0-80.0 % Lymphocytes (%) (Auto) 27.4 10.0-50.0 % Monocytes (%) (Auto) 8.2 0.0-12.0 % Eosinophils (%) (Auto) 0.3 0.0-7.0 % Basophils (%) (Auto) 0.9 0.0-2.0 % Neutrophils # (Auto) 5.0 1.6-8.6 10 ^3/uL Lymphocytes # (Auto) 2.2 0.4-5.4 10 ^3/uL Monocytes # (Auto) 0.6 0-1.3 10 ^3/uL Eosinophils # (Auto) 0 0-0.8 10 ^3/uL Basophils # (Auto) 0.1 0-0.2 10 ^3/uL Nucleated Red Blood Cells 0.2 % Sodium Level 138 136-145 mmol/L Potassium Level 3.7 3.5-5.1 mmol/L Chloride Level 102 98-107 mmol/L Carbon Dioxide Level 26 20-31 mmol/L Anion Gap 10 5-15 Blood Urea Nitrogen 9 9-23 mg/dL Creatinine 0.67 0.550-1.02 mg/dL Glomerular Filtration Rate Calc 103 >90 mL/min BUN/Creatinine Ratio 13.4 10.0-20.0 Serum Glucose 94 74-106 mg/dL Calcium Level 10.5 H 8.7-10.4 mg/dL Total Bilirubin 0.8 0.2-1.0 mg/dL Aspartate Amino Transferase (AST) 18 13-40 U/L Alanine Aminotransferase (ALT) 15 7-40 U/L Alkaline Phosphatase 108 46-116 U/L Troponin I High Sensitivity < 3 L </=34 ng/L Total Protein 7.7 5.7-8.2 g/dL Albumin 5.3 H 3.2-4.8 g/dL Plasma/Serum Blood Alcohol < 3.0 <10 mg/dL SEPSIS Sepsis Screen Date sepsis recognized/suspect: Apr 22, 2025 Time Sepsis recognized/suspect: 1053 Recent Procedure: No On Antibiotic Therapy: No Respiratory Rate >20: No Heart Rate >90: Yes Temp<36 C (96.8 F) or >38.3 C: No SBP <90 or MAP <65 mmHG: No New Acute Mental Status Change: No Is the patient on CPAP, BIPAP,: No Physician Orders Chest Portable (04/22/25 11:10) Nitroglycerin Sublingual (Ntrostat Subli (04/23/25 10:00) Drug Screen (04/22/25 11:10) Echo 2d Mode Cardiac Dop (04/22/25 11:10) Electrocardigram (04/22/25 13:02) Admit (04/22/25 18:17) Code Status (04/22/25 18:17) Vital Signs .PER UNIT PROTOCOL (04/22/25 18:17) Review Orders With Adm.Md (04/22/25 18:17) Notify Md Of Changes From Base (04/22/25 18:17) Advance Directive (04/22/25 18:17) Patient Condition (04/22/25 18:17) Allergies (04/22/25 18:17) Stat Ekg For Chest Pain (04/22/25 18:17) Notify Md Of Changes From Base (04/22/25 18:17) Fusing Machine Operator For 24 Hours (04/22/25 18:17) Emergency Dysrhythmia Protocol (04/22/25 18:17) Rhythm Strips Once Every Shift (04/22/25 18:17) Hi Prothrombin W Inr In Clinic (04/22/25 18:17) Magnesium (04/22/25 18:17) Thyroid Stimulating Hormone (04/22/25 18:17) Drug Screen (04/22/25 18:17) Blood Alcohol (04/22/25 18:17) Complete Blood Count (04/23/25 04:00) Comprehensive Metabolic Panel (04/23/25 04:00) Aspirin Tablet (04/23/25 10:00) Lisinopril Tablet (Zestril Tablet) (04/22/25 18:30) Lisinopril Tablet (Zestril Tablet) (04/23/25 10:00) Nitroglycerin Sublingual (Ntrostat Subli (04/22/25 18:30) Nitroglycerin Sublingual (Ntrostat Subli (04/22/25 18:30) Lorazepam 2mg/Ml Inj (Ativan Inj) (04/22/25 18:30) Lorazepam Tablet (Ativan Tablet) (04/22/25 18:30) Amlodipine Tablet (Norvasc Tablet) (04/22/25 18:30) Amlodipine Tablet (Norvasc Tablet) (04/23/25 10:00) Atorvastatin (Lipitor) (04/22/25 22:00) Vital Signs Date Time Temp Pulse Resp B/P (MAP) Pulse Ox O2 Delivery O2 Flow Rate FiO2 04/22/25 13:40 99 04/22/25 11:00 90 04/22/25 10:53 97.8 92 16 137/87 99 97.8 Laboratory Tests Test 04/22/25 11:36 White Blood Count 7.9 10^3/uL (4.4-10.8) Medications Medications Dose Ordered Sig/Geovanna Route Start Time Stop Time Status Last Admin Dose Admin Aspirin 325 mg ONCE ONCE PO 04/22/25 11:15 04/22/25 11:16 DC 04/22/25 11:15 325 MG Assessment/Plan Assessment/Plan Chest pain, likely cardiac secondary to cocaine use disorder Cocaine use disorder Hypertension Current smoker Current marijuana user * EKGs shows normal sinus rhythm and no significant ST or T-wave changes * Serial trop I is within normal limits * Chest x-ray shows no significant intrathoracic abnormalities Plan/recommendation * Aspirin and atorvastatin * Nitroglycerin and lisinopril * Ativan 1 mg stat * Ativan p.r.n. DIET: Cardiac diet DVT PROPHYLAXIS: Lovenox CODE STATUS: Goal of care discussed for more than 18 minutes, full code DISPOSITION: Telemetry Patient's status and plan discussed with the patient. Case discussed with Dr. Walters Plan discussed with: Patient, Other (RN) My Orders Orders - [facility] RESDILULU Procedure Category Date Status Time Admit ADMIT 04/22/25 Verified 18:17 Code Status CODE 04/22/25 Verified 18:17 Vital Signs [facility] 04/22/25 Verified 18:17 Review Orders With [facility] 04/22/25 Verified Adm. 18:17 Notify Md Of Changes [facility] 04/22/25 Verified From Base 18:17 Advance Directive [facility] 04/22/25 Verified 18:17 Patient Condition ORDERS 04/22/25 Verified 18:17 Allergies [facility] 04/22/25 Verified 18:17 Stat Ekg For Chest [facility] 04/22/25 Verified Pain 18:17 Notify Md Of Changes [facility] 04/22/25 Verified From Base 18:17 Fusing Machine Operator For [facility] 04/22/25 Verified 24 Hours 18:17 Emergency Dysrhythmia [facility] 04/22/25 Verified Protocol 18:17 Rhythm Strips Once [facility] 04/22/25 Verified Every Shift 18:17 Hi Prothrombin W Inr [facility] 04/22/25 Verified In Clinic 18:17 Magnesium LAB 04/22/25 Verified 18:17 Thyroid Stimulating LAB 04/22/25 Verified Hormone 18:17 Drug Screen LAB 04/22/25 Verified 18:17 Blood Alcohol LAB 04/22/25 Verified 18:17 Complete Blood Count LAB 04/23/25 Verified 04:00 Comprehensive LAB 04/23/25 Verified Metabolic Panel 04:00 Aspirin Tablet [facility] 04/23/25 Verified 10:00 Lisinopril Tablet [facility] 04/22/25 Verified (Zestril Tablet) 18:30 Lisinopril Tablet [facility] 04/23/25 Verified (Zestril Tablet) 10:00 Nitroglycerin [facility] 04/22/25 Verified Sublingual (Ntrostat 18:30 Nitroglycerin [facility] 04/22/25 Verified Sublingual (Ntrostat 18:30 Lorazepam 2mg/Ml Inj [facility] 04/22/25 Verified (Ativan Inj) 18:30 Lorazepam Tablet [facility] 04/22/25 Verified (Ativan Tablet) 18:30 Amlodipine Tablet [facility] 04/22/25 Verified (Norvasc Tablet) 18:30 Amlodipine Tablet [facility] 04/23/25 Verified (Norvasc Tablet) 10:00 Atorvastatin (Lipitor) [facility] 04/22/25 Verified 22:00 Date of Service: Apr 24, 2025 Billing Provider: VIRGILIO WALTERS MD Common Visit Codes: [id number] INP/OBS CARE (HIGH) [facility] Apr 22, 2025 18:23 VIRGILIO WALTERS MD Apr 26, 2025 21:00
[2025-04-22] MEDS ORDERED: LORazepam 2MG/ML-1ML VIAL IV ONE (18:30)
[2025-04-22] MEDS ORDERED: NITROGLYCERIN 0.4 MG SL TAB SL PRN (18:30)
[2025-04-22] MEDS: NITROGLYCERIN 0.4 MG SL TAB SL ONE (18:52)
[2025-04-22] MEDS: ENOXAPARIN SOD 40 MG/0.4 ML SYRINGE SC ONE (18:52)
[2025-04-22] MEDS: LISINOPRIL 5 MG TAB PO ONE (18:53)
[2025-04-22] MEDS: LORazepam 0.5 MG TAB PO PRN (18:56)
[2025-04-22 18:57] VITALS: BP 108/68; PULSE 94; RESP 19; TEMP 98.1; O2SAT 99
[2025-04-22] MEDS ORDERED: LORazepam 0.5 MG TAB PO ONE (19:00)
[2025-04-22 19:06] LABS: Magnesium 2.0 mg/dL (1.6-2.6)
[2025-04-22] MEDS ORDERED: ATORVASTATIN 20 MG TAB PO SCH (22:00)
[2025-04-23] MEDS ORDERED: ENOXAPARIN SOD 40 MG/0.4 ML SYRINGE SC SCH (10:00)
[2025-04-23] MEDS ORDERED: NITROGLYCERIN 0.4 MG SL TAB SL ONE (10:00)
[2025-04-23] MEDS ORDERED: LISINOPRIL 5 MG TAB PO SCH (10:00)
--- NOTE | 2025-04-23 18:47 | DVHDSRES ---
Discharge Summary Date of Admission Resident Creating Document: THEO LAI Apr 22, 2025 at 18:17 Date of Discharge: Apr 23, 2025 Labs/Diagnostic Data: Laboratory Results Test 04/22/25 18:35 04/22/25 11:36 Magnesium Level 2.0 mg/dL (1.6-2.6) Plasma/Serum Blood Alcohol 4.2 mg/dL (<10) White Blood Count 7.9 10^3/uL (4.4-10.8) Red Blood Count 5.43 10^6/uL (4.0-5.20) Hemoglobin 15.2 g/dL (12.2-16.2) Hematocrit 44.5 % (36.0-46.0) Mean Corpuscular Volume 81.8 fL (80.0-100.0) Mean Corpuscular Hemoglobin 27.9 pg (28.0-32.0) Mean Corpuscular Hemoglobin Concent 34.1 g/dL (32.0-36.0) Red Cell Distribution Width 13.7 % (11.8-14.3) Platelet Count 305 10^3/uL (140-450) Mean Platelet Volume 8.8 fL (6.9-10.8) Neutrophils (%) (Auto) 63.2 % (37.0-80.0) Lymphocytes (%) (Auto) 27.4 % (10.0-50.0) Monocytes (%) (Auto) 8.2 % (0.0-12.0) Eosinophils (%) (Auto) 0.3 % (0.0-7.0) Basophils (%) (Auto) 0.9 % (0.0-2.0) Neutrophils # (Auto) 5.0 10 ^3/uL (1.6-8.6) Lymphocytes # (Auto) 2.2 10 ^3/uL (0.4-5.4) Monocytes # (Auto) 0.6 10 ^3/uL (0-1.3) Eosinophils # (Auto) 0 10 ^3/uL (0-0.8) Basophils # (Auto) 0.1 10 ^3/uL (0-0.2) Nucleated Red Blood Cells 0.2 % Sodium Level 138 mmol/L (136-145) Potassium Level 3.7 mmol/L (3.5-5.1) Chloride Level 102 mmol/L (98-107) Carbon Dioxide Level 26 mmol/L (20-31) Anion Gap 10 (5-15) Blood Urea Nitrogen 9 mg/dL (9-23) Creatinine 0.67 mg/dL (0.550-1.02) Glomerular Filtration Rate Calc 103 mL/min (>90) BUN/Creatinine Ratio 13.4 (10.0-20.0) Serum Glucose 94 mg/dL (74-106) Calcium Level 10.5 mg/dL (8.7-10.4) Total Bilirubin 0.8 mg/dL (0.2-1.0) Aspartate Amino Transferase (AST) 18 U/L (13-40) Alanine Aminotransferase (ALT) 15 U/L (7-40) Alkaline Phosphatase 108 U/L (46-116) Troponin I High Sensitivity < 3 ng/L (</=34) Total Protein 7.7 g/dL (5.7-8.2) Albumin 5.3 g/dL (3.2-4.8) Thyroid Stimulating Hormone (TSH) 0.56 uIU/mL (0.55-4.78) Other Laboratory Tests 04/22/25 11:36 Brief Hx & Hospital Course: History of Present Illness This is a 54 years old female with past medical history of hypertension, polysubstance abuse disorder presented to the ED with a chief complaint of substernal chest pain with shortness of breath and lightheadedness since 1 hour prior to this visit. The patient stated that the chest pain is substernal, feels like heaviness and stabbing pain, 7/10 radiate to the back and right shoulder ,associated with shortness of breath. She also mentioned that she has intermittent chest pain for last 1 week every other day and came to the ER 1 week ago and left AMA. She denies fever, chills, blurred vision, abdominal pain, vomiting, dysuria, hematuria or any changes in bowel and bladder habit. Previous hospitalization: Patient has frequent ER visits due to chest discomfort which happened after using cocaine PMHx: Hypertension PSHx: Not significant Family history: No significant Social history: Smokes marijuana, cigarettes, cocaine, denies any other drug use Home medication: Does not take any medicine Allergic history: Flagyl Hospital course: The patient was admitted on the chest done and workup of possible cardiac cause. EKG was performed, showed sinus rhythm with no significant ST or T-wave changes were serial trop I is within normal limits. Patient was given aspirin, Ativan and atorvastatin. Echocardiogram was ordered, but later on patient eloped. FINAL DIAGNOSIS: Chest pain, likely cardiac secondary to cocaine use disorder Possible unstable angina Cocaine use disorder Hypertension Current smoker Current marijuana user Condition at Discharge: Undetermined Final Diagnosis/Problems List Possible unstable angina Discharge Disposition: Eloped Discharge Instruct/Medications Scheduled Aspirin (Asa), 162 MG PO DAILY, (Reported) Discharge Statement: "Patient was advised to return to the ER or call 911 if any headaches, dizziness, shortness of breath, chest pain, abdominal pain, bleeding, fevers, or worsening of medical condition. Patient was counseled about treatment plan, medications, possible side effects, patientverbalized understanding. All questions were answered to the best of my ability. This discharge took greater then 30 minutes in planning, reviewing documentation, counseling the patient, and discussing with other team members." ASSESSMENT ASSESSMENT Assessment Date of Service: Apr 23, 2025 Billing Provider: VIRGILIO WALTERS MD Common Visit Codes: [id number] CARE 30-74 MIN [facility] RESDIENT Apr 23, 2025 18:47 VIRGILIO WALTERS MD Apr 26, 2025 20:47
--- NOTE | 2025-04-27 14:29 | ECG ---
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
== END 2025-04-22 23:45 | disposition left against medical advice (07) | DRG 311 ==
LOC: ER 10:52 → OVERFLOW 18:17
PROVIDERS: ATTEND Student in an Organized Health Care Education/Training Program
DX: I20.0 Unstable angina (principal); F14.10 Cocaine abuse, uncomplicated; I10 Essential (primary) hypertension; Z53.29 Procedure and treatment not carried out because of patient's decision for other reasons; F17.210 Nicotine dependence, cigarettes, uncomplicated; F41.9 Anxiety disorder, unspecified; T40.5X5A Adverse effect of cocaine, initial encounter; Z79.82 Long term (current) use of aspirin; Z79.899 Other long term (current) drug therapy; Y92.89 Other specified places as the place of occurrence of the external cause
CPT/HCPCS: 36415; 71045; 80048; 80053; 80320; 83735; 84443; 84484; 85025; 93005; G0378

== ENCOUNTER 2025-06-07 15:28 | Emergency (ER) | payer BC, MEDICARE, MEDICAID ==
[~2025-06-07] VITALS: Ht 162.6 cm; Wt 76.1 kg
[2025-06-07 15:32] VITALS: TEMP 98.6
[2025-06-07 15:58] VITALS: BP 146/85; PULSE 92; RESP 18; O2SAT 98
--- NOTE | 2025-06-07 16:03 | ED.PDOC ---
History of Present Illness HPI Comments A 54 YEAR OLD FEMALE PRESENTS TO THE ED WITH COMPLAINT OF RIGHT 4TH FINGER PAIN AND MILD BILATERAL ANKLE SWELLING. 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 PATIENT REPORTS SHE IS NOW EXPERIENCING PAIN TO HER 4TH FINGER AND WOULD LIKE AN ARM SLING HERE IN THE ED. PATIENT STATES SHE IS ALSO CONCERNED THAT SHE BILATERAL ANKLE AND FOOT SWELLING THAT SHE WOULD LIKE HAVE LOOKED AT. PATIENT DENIES FEVER, CHILLS, SHORTNESS OF BREATH, CHEST PAIN, ABDOMINAL PAIN, NAUSEA, VOMITING, HEADACHE, OR OTHER COMPLAINTS. NO OTHER SYMPTOMS OR MODIFYING FACTORS AT THIS TIME. PATIENT IS ALERT, ORIENTED X 4, AND HAS STEADY GAIT. Chief Complaint: Lower Extremity Time Seen by MD: 15:34 Primary Care Provider: JUDY Bingham Notes: Nurses Notes, Medications, Allergies Allergies: Coded Allergies: Metronidazole (Verified Allergy, Unknown, 03/06/25) Uncoded Allergies: FLGYL (Allergy, Unknown, 08/25/24) Home Meds Reported Medications Aspirin (Asa) 81 Mg Ch, 162 MG PO DAILY 04/13/11 Information Source: Patient Mode of Arrival: Ambulatory Severity: Mild Timing: Days Duration: Since onset, Days Prehospital treatment: None Medication Refill: For: Other (RIGHT 4TH FINGER PAIN AND POSSIBLE RIGHT ANKLE AND FOOT SWELLING) Past Medical History PAST MEDICAL HISTORY: Anxiety, HTN Surgical History: Denies all surgeries NURSE GYNECOLOGY History: No Pertinent NURSE GYNECOLOGY History Family History Family History: No family hx of Cancer, No family hx of DM, No family hx of HTN, No family hx of Stroke Social History Smoker: Cigarettes, Greater Than 1 Pack/Day Alcohol: Occasionally Drugs: Cocaine, Marijuana Lives In: Home Constitutional: denies: chills, diaphoresis, fatigue, fever, malaise, sweats, weakness, others EENTM: denies: blurred vision, double vision, ear bleeding, ear discharge, ear drainage, ear pain, ear ringing, eye pain, eye redness, hearing loss, mouth pain, mouth swelling, nasal discharge, nose bleeding, nose congestion, nose pain, photophobia, tearing, throat pain, throat swelling, voice changes, others Respiratory: denies: cough, hemoptysis, orthopnea, SOB at rest, shortness of breath, SOB with excertion, stridor, wheezing, others Cardiovascular: denies: chest pain, dizzy spells, diaphoresis, Dyspnea on exertion, edema, irregular heart beat, left arm pain, lightheadedness, palpitations, PND, syncope, others Gastrointestinal: denies: abdomen distended, abdominal pain, blood streaked bowels, constipated, diarrhea, dysphagia, difficulty swallowing, hematemesis, melena, nausea, poor appetite, poor fluid intake, rectal bleeding, rectal pain, vomiting, others Genitourinary: denies: abnormal vagina bleeding, burning, dyspareunia, dysuria, flank pain, frequency, hematuria, incontinence, pain, , vagina discharge, urgency, others Neurological: denies: dizziness, fainting, headache, left sided numbness, left sided weakness, numbness, paresthesia, pre-existing deficit, right sided numbness, right sided weakness, seizure, speech problems, tingling, tremors, weakness, others Musculoskeletal: reports: others (RIGHT 4TH FINGER PAIN POST SURGERY. ); denies: back pain, gout, joint pain, joint swelling, muscle pain, muscle stiffness, neck pain Integumetry: denies: bruises, change in color, change in hair/nails, dryness, laceration, lesions, lumps, rash, wounds, others Allergic/Immunocompromised: denies: Difficulty Healing, Frequent Infections, Hives, Itching, others Hematologic/Lymphatic: denies: anemia, blood clots, easy bleeding, easy bruising, swollen glands, others Endocrine: denies: excessive hunger, excessive sweating, excessive thirst, excessive urination, flushing, intolerance to cold, intolerance to heat, unexplained weight gain, unexplained weight loss, others Psychiatric: denies: anxiety, bipolar disorder, depression, hopeless, panic disorder, schizophrenia, sleepless, suicidal, others All Other Systems: Reviewed and Negative Physical Exam General Appearance: No Apparent Distress, Normal HEENT: Normal ENT Inspection, PERRL/EOMI, Pharynx Normal, TMs Normal Neck: Full Range of Motion, Non-Tender, Normal, Normal Inspection Respiratory: Chest Non-Tender, Lungs Clear, No Accessory Muscle Use, No Respiratory Distress, Normal Breath Sounds Cardiovascular: No Edema, No JVD, No Murmur, No Gallop, Normal Peripheral Pulses, Regular Rate/Rhythm Breast Exam: Deferred Gastrointestinal: No Organomegaly, Non Tender, No Pulsatile Mass, Normal Bowel Sounds, Soft Genitalia: Deferred Pelvic: Deferred Rectal: Deferred Extremities: No calf tenderness, Normal capillary refill, Normal inspection, Normal range of motion, No pedal edema, Tender (WITH SPLINT ON RIGHT 4TH FINGER, NO SKIN REDNESS AND SWELLING, NEUROVASCULAR INTACT. ), Other (NORMAL FEET AND LOWER LEGS, NO REDNESS, SWELLING AND DVT SIGNS. ) Musculoskeletal : Apperance: Normal Neurologic: Alert, textile converter II-XII nml as Tested, No Motor Deficits, Normal Affect, Normal Mood, No Sensory Deficits Cerebellar Function: Normal Reflexes: Normal Skin: Dry, Normal Color, Warm Peripheral Pulses: 2+ carotid (R), 2+ carotid (L), 2+ dorsalis pedis (R), 2+ dorsalis pedis (L) Lymphatic: No Adenopathy Was a procedure done? Was a procedure done?: No Differential Dx Considerations may include: DEPENDENT EDEMA, ANXIETY REACTION, RIGHT 4TH FINGER PAIN, POSTOPERATIVE PAIN X-Ray, Labs, Meds, VS Vital Signs Date Time Temp Pulse Resp B/P (MAP) Pulse Ox O2 Delivery O2 Flow Rate FiO2 06/07/25 15:58 92 18 146/85 (105) 98 06/07/25 15:58 92 18 98 Room Air 06/07/25 15:32 98.6 95 16 96 98.6 X-Ray, Labs, Meds, VS Comment EXTERNAL MEDICAL RECORDS REVIEWED: [NONE] INDEPENDENT HISTORIANS: [NONE] SOCIAL DETERMINANTS OF HEALTH: [NONE] LABS ORDERED: NONE REVIEWED AND INTERPRETED RESULTS: NONE IMAGING ORDERED: NONE TREATMENTS ORDERED: ARM SLING APPLIED TO PATIENT'S RIGHT ARM. PROCEDURES PERFORMED: NONE CRITICAL CARE TIME: NONE I HAVE DISCUSSED THE PATIENT WITH THE ATTENDING PHYSICIAN DR. PARIS AND HE AGREES WITH THE PATIENT'S PLAN OF CARE AND DISPOSITION. BASED ON HISTORY OF PRESENT ILLNESS, AND PHYSICAL EXAM, PATIENT WILL BE DISCHARGED HOME. SHARED DECISION MAKING: PATIENT INSTRUCTED TO FOLLOW UP WITH PRIMARY CARE PROVIDER IN 1-2 DAYS FOR RE-EVALUATION OF SYMPTOMS. PATIENT VERBALIZES UNDERSTANDING TO RETURN TO ED FOR NEW OR WORSENING SYMPTOMS OR IF FOLLOW UP WITH PCP CANNOT BE OBTAINED. PATIENT FEELS COMFORTABLE GOING HOME AT THIS TIME. ALL QUESTIONS ADDRESSED AT TIME OF DISCHARGE. Time of 1ST Reevaluation: 16:11 Reevaluation 1ST: Improved Patient Education/Counseling: Diagnosis, Treatment, Need For Follow Up Family Education/Counseling: Diagnosis, Treatment, Need For Follow Up Medical Screening: No EMC Exist At This Time SEPSIS Sepsis Screen Date sepsis recognized/suspect: Jun 07, 2025 Time Sepsis recognized/suspect: 1532 Recent Procedure: No On Antibiotic Therapy: No Respiratory Rate >20: No Heart Rate >90: No Temp<36 C (96.8 F) or >38.3 C: No SBP <90 or MAP <65 mmHG: No New Acute Mental Status Change: No Is the patient on CPAP, BIPAP,: No Vital Signs Date Time Temp Pulse Resp B/P (MAP) Pulse Ox O2 Delivery O2 Flow Rate FiO2 06/07/25 15:58 92 18 146/85 (105) 98 06/07/25 15:58 92 18 98 Room Air 06/07/25 15:32 98.6 95 16 96 98.6 Departure 1 Departure Time of Disposition: 16:20 Impression: Primary Impression: Postoperative pain Additional Impression: Normal foot exam Disposition: 01 HOME / SELF CARE / HOMELESS Condition: Stable Additional Instructions: FOLLOW-UP WITH PCP IN 1 TO 2 DAYS. RETURN TO ED FOR ANY NEW OR WORSENING SYMPTOMS. Discharged With: Self Critical Care Note Critical Care Time?: No Stability Stability form required: No I personally scribed for GISSEL KATHLEEN ([email or web address]) on 06/07/25 at 16:03. Electronically submitted by Azael Sanders ([email or web address]). GISSEL KATHLEEN Jun 07, 2025 16:03
== END 2025-06-07 16:05 | disposition home or self-care (01) ==
LOC: ER 15:33
DX: G89.18 Other acute postprocedural pain (principal); F17.210 Nicotine dependence, cigarettes, uncomplicated; F10.90 Alcohol use, unspecified, uncomplicated; F12.90 Cannabis use, unspecified, uncomplicated; F41.9 Anxiety disorder, unspecified; I10 Essential (primary) hypertension; Z88.1 Allergy status to other antibiotic agents; Z79.82 Long term (current) use of aspirin; Y90.9 Presence of alcohol in blood, level not specified

== ENCOUNTER 2025-07-20 15:02 | Emergency (ER) | payer BC, MEDICARE, MEDICAID ==
[~2025-07-20] VITALS: Ht 162.6 cm; Wt 72.9 kg
--- NOTE | 2025-07-20 15:54 | ED.PDOC ---
History of Present Illness HPI Comments 54 year old female with PMHx anxiety, HTN presents to the ED with a chief complaint of overdose onset today (07/20/25) about 30 minutes prior to ED arrival. Patient states she smokes marijuana with cocaine, shortly after smoked cigarettes. A few minutes after, she began experiencing anxiety, palpitations and lightheadedness. She states she has used all 3 in the past, has not experienced similar symptoms. Denies fever, chills, headache, nausea, vomiting, diarrhea, abdominal pain, SI, HI, hallucinations. No other symptoms or modifying factors present at this time. Chief Complaint: Overdose Time Seen by MD: 15:35 Primary Care Provider: JUDY Bingham Notes: Medications, Allergies Allergies: Coded Allergies: Metronidazole (Verified Allergy, Unknown, 03/06/25) Uncoded Allergies: FLGYL (Allergy, Unknown, 08/25/24) Home Meds Reported Medications Aspirin (Asa) 81 Mg Ch, 162 MG PO DAILY 04/13/11 Information Source: Patient Mode of Arrival: Ambulatory Severity: Moderate Timing: Hours Duration: Since onset Prehospital treatment: None Past Medical History PAST MEDICAL HISTORY: Anxiety, HTN Surgical History: Denies all surgeries TEXTILE STYLIST History: No Pertinent TEXTILE STYLIST History Family History Family History: No family hx of Cancer, No family hx of DM, No family hx of HTN, No family hx of Stroke Social History Smoker: Cigarettes, Greater Than 1 Pack/Day Alcohol: Occasionally Drugs: Cocaine, Marijuana Lives In: Home Constitutional: denies: chills, diaphoresis, fatigue, fever, malaise, sweats, weakness, others EENTM: denies: blurred vision, double vision, ear bleeding, ear discharge, ear drainage, ear pain, ear ringing, eye pain, eye redness, hearing loss, mouth pain, mouth swelling, nasal discharge, nose bleeding, nose congestion, nose pain, photophobia, tearing, throat pain, throat swelling, voice changes, others Respiratory: denies: cough, hemoptysis, orthopnea, SOB at rest, shortness of breath, SOB with excertion, stridor, wheezing, others Cardiovascular: reports: palpitations; denies: chest pain, dizzy spells, diaphoresis, Dyspnea on exertion, edema, irregular heart beat, left arm pain, lightheadedness, PND, syncope, others Gastrointestinal: denies: abdomen distended, abdominal pain, blood streaked bowels, constipated, diarrhea, dysphagia, difficulty swallowing, hematemesis, melena, nausea, poor appetite, poor fluid intake, rectal bleeding, rectal pain, vomiting, others Genitourinary: denies: abnormal vagina bleeding, burning, dyspareunia, dysuria, flank pain, frequency, hematuria, incontinence, pain, , vagina discharge, urgency, others Neurological: reports: others (lightheaded); denies: dizziness, fainting, headache, left sided numbness, left sided weakness, numbness, paresthesia, pre- existing deficit, right sided numbness, right sided weakness, seizure, speech pr oblems, tingling, tremors, weakness Musculoskeletal: denies: back pain, gout, joint pain, joint swelling, muscle pain, muscle stiffness, neck pain, others Integumetry: denies: bruises, change in color, change in hair/nails, dryness, laceration, lesions, lumps, rash, wounds, others Allergic/Immunocompromised: denies: Difficulty Healing, Frequent Infections, Hives, Itching, others Hematologic/Lymphatic: denies: anemia, blood clots, easy bleeding, easy bruising, swollen glands, others Endocrine: denies: excessive hunger, excessive sweating, excessive thirst, excessive urination, flushing, intolerance to cold, intolerance to heat, unexplained weight gain, unexplained weight loss, others Psychiatric: reports: anxiety; denies: bipolar disorder, depression, hopeless, panic disorder, schizophrenia, sleepless, suicidal, others All Other Systems: Reviewed and Negative Physical Exam General Appearance: No Apparent Distress, Normal HEENT: Normal ENT Inspection, Pharynx Normal, TMs Normal Neck: Full Range of Motion, Non-Tender, Normal, Normal Inspection Respiratory: Chest Non-Tender, Lungs Clear, No Accessory Muscle Use, No Resp iratory Distress, Normal Breath Sounds Cardiovascular: No Edema, No JVD, No Murmur, No Gallop, Normal Peripheral Pulses, Regular Rate/Rhythm Breast Exam: Deferred Gastrointestinal: No Organomegaly, Non Tender, No Pulsatile Mass, Normal Bowel Sounds, Soft Genitalia: Deferred Pelvic: Deferred Rectal: Deferred Extremities: No calf tenderness, Normal capillary refill, Normal inspection, Normal range of motion, Non-tender, No pedal edema Musculoskeletal : Apperance: Normal Neurologic: Alert, price accuracy supervisor II-XII nml as Tested, No Motor Deficits, Normal Affect, Normal Mood, No Sensory Deficits Cerebellar Function: Normal Reflexes: Normal Skin: Dry, Normal Color, Warm Lymphatic: No Adenopathy Was a procedure done? Was a procedure done?: No Differential Dx Considerations may include: , cocaine abuse, THC abuse X-Ray, Labs, Meds, VS Vital Signs Date Time Temp Pulse Resp B/P (MAP) Pulse Ox O2 Delivery O2 Flow Rate FiO2 07/20/25 17:07 98.1 95 16 120/85 (97) 97 98.1 07/20/25 15:05 98.5 108 18 145/95 98 98.5 Lab Test 07/20/25 15:33 Range/Units White Blood Count 6.9 4.4-10.8 10^3/uL Red Blood Count 5.37 H 4.0-5.20 10^6/uL Hemoglobin 14.9 12.2-16.2 g/dL Hematocrit 44.5 36.0-46.0 % Mean Corpuscular Volume 83.0 80.0-100.0 fL Mean Corpuscular Hemoglobin 27.7 L 28.0-32.0 pg Mean Corpuscular Hemoglobin Concent 33.4 32.0-36.0 g/dL Red Cell Distribution Width 13.6 11.8-14.3 % Platelet Count 330 140-450 10^3/uL Mean Platelet Volume 8.2 6.9-10.8 fL Neutrophils (%) (Auto) 54.2 37.0-80.0 % Lymphocytes (%) (Auto) 36.8 10.0-50.0 % Monocytes (%) (Auto) 7.0 0.0-12.0 % Eosinophils (%) (Auto) 1.0 0.0-7.0 % Basophils (%) (Auto) 1.0 0.0-2.0 % Neutrophils # (Auto) 3.7 1.6-8.6 10 ^3/uL Lymphocytes # (Auto) 2.5 0.4-5.4 10 ^3/uL Monocytes # (Auto) 0.5 0-1.3 10 ^3/uL Eosinophils # (Auto) 0.1 0-0.8 10 ^3/uL Basophils # (Auto) 0.1 0-0.2 10 ^3/uL Nucleated Red Blood Cells 0.1 % Sodium Level 144 136-145 mmol/L Potassium Level 3.7 3.5-5.1 mmol/L Chloride Level 106 98-107 mmol/L Carbon Dioxide Level 27 20-31 mmol/L Anion Gap 11 5-15 Blood Urea Nitrogen 8 L 9-23 mg/dL Creatinine 0.78 0.550-1.02 mg/dL Glomerular Filtration Rate Calc 90 >90 mL/min BUN/Creatinine Ratio 10.3 10.0-20.0 Serum Glucose 97 74-106 mg/dL Calcium Level 10.2 8.7-10.4 mg/dL Troponin I High Sensitivity < 3 L </=34 ng/L X-Ray, Labs, Meds, VS Comment Patient unable to provide urine sample, patient feeling better, patient requesting to leave. Patient refused normal saline. Time of 1ST Reevaluation: 16:05 Reevaluation 1ST: Unchanged Patient Education/Counseling: Diagnosis, Treatment, Prognosis, Need For Follow Up (Follow up PCP next available appointment) Family Education/Counseling: No Family Present SEPSIS Sepsis Screen Date sepsis recognized/suspect: Jul 20, 2025 Time Sepsis recognized/suspect: 1505 Recent Procedure: No On Antibiotic Therapy: No Respiratory Rate >20: No Heart Rate >90: Yes Temp<36 C (96.8 F) or >38.3 C: No SBP <90 or MAP <65 mmHG: No New Acute Mental Status Change: No Is the patient on CPAP, BIPAP,: No Physician Orders Urinalysis (07/20/25 15:37) Drug Screen (07/20/25 15:37) Sodium Chloride 0.9% (07/20/25 17:00) Vital Signs Date Time Temp Pulse Resp B/P (MAP) Pulse Ox O2 Delivery O2 Flow Rate FiO2 07/20/25 17:07 98.1 95 16 120/85 (97) 97 98.1 07/20/25 15:05 98.5 108 18 145/95 98 98.5 Laboratory Tests Test 07/20/25 15:33 White Blood Count 6.9 10^3/uL (4.4-10.8) Departure 1 Departure Time of Disposition: 17:31 Impression: Primary Impression: Cocaine-induced anxiety disorder Disposition: 01 HOME / SELF CARE / HOMELESS Condition: Stable Discharged With: Self Critical Care Note Critical Care Time?: No Stability Stability form required: No Heart Score Heart Score: Heart Score Response (Comments) Value History N/A 0 EKG N/A 0 Age N/A 0 Risk Factors N/A 0 Troponin N/A 0 Total 0 I personally scribed for ROLANDA RICHARDSON ([email or web address]) on 07/20/25 at 15:54. Electronically submitted by Avelina Sandoval ([email or web address]). I personally scribed for ROLANDA RICHARDSON ([email or web address]) on 07/20/25 at 16:05. Electronically submitted by Avelina Sandoval ([email or web address]). ROLANDA RICHARDSON Jul 20, 2025 15:54
[2025-07-20 16:20] LABS: Chloride 106 mmol/L (98-107); Potassium 3.7 mmol/L (3.5-5.1); Sodium 144 mmol/L (136-145)
[2025-07-20 16:21] LABS: Anion Gap 11 (5-15); Calcium 10.2 mg/dL (8.7-10.4); Carbon Dioxide 27 mmol/L (20-31)
[2025-07-20 16:23] LABS: Hematocrit 44.5 % (36.0-46.0); Hemoglobin 14.9 g/dL (12.2-16.2); Mean Corpuscular Hemoglobin 27.7 pg (28.0-32.0); Mean Corpuscular Volume 83.0 fL (80.0-100.0); Nucleated Red Blood Cells % 0.1 %
[2025-07-20 16:26] LABS: BUN/Creatinine Ratio 10.3 (10.0-20.0); Blood Urea Nitrogen 8 mg/dL (9-23); Glucose 97 mg/dL (74-106)
[2025-07-20 17:07] VITALS: BP 120/85; PULSE 95; RESP 16; TEMP 98.1; O2SAT 97
[2025-07-20] MEDS: SODIUM CHLORIDE 0.9% 1,000 ML IV ONE (17:19)
[2025-07-20 17:57] LABS: Cannabinoid Screen, Urine Pos (NEGATIVE)
[2025-07-20 18:28] LABS: Urine Protein, UAD Negative (Negative)
[2025-07-20 18:43] LABS: Amphetamine Screen, Urine Neg (NEGATIVE); Barbiturate Scree,Urine Neg (NEGATIVE); Benzodiazephine Screen, Urine Neg (NEGATIVE); Cocaine Screen, Urine Pos (NEGATIVE); Opiate Scree,Urine Neg (NEGATIVE); Phencyclidine Screen, Urine Neg (NEGATIVE)
== END 2025-07-20 17:45 | disposition home or self-care (01) ==
LOC: ER 15:02
DX: F41.9 Anxiety disorder, unspecified (principal); F12.90 Cannabis use, unspecified, uncomplicated; F17.210 Nicotine dependence, cigarettes, uncomplicated; F10.90 Alcohol use, unspecified, uncomplicated; I10 Essential (primary) hypertension; Z88.1 Allergy status to other antibiotic agents; Z79.82 Long term (current) use of aspirin; Y90.9 Presence of alcohol in blood, level not specified
CPT/HCPCS: 36415; 80048; 80307; 81001; 84484; 85025

== ENCOUNTER 2025-07-30 11:25 | Emergency (ER) | payer BC, MEDICARE, MEDICAID ==
[~2025-07-30] VITALS: Ht 162.6 cm; Wt 73.4 kg
--- NOTE | 2025-07-30 11:54 | ECG ---
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
--- NOTE | 2025-07-30 12:05 | ED.PDOC ---
History of Present Illness HPI Comments Aung is a 54-year-old female with prior medical history of prediabetes, hypertension, thyroid nodules, GERD, and substance use, who presents today with chief complaint of generalized weakness. The patient states that for the last 2 days she has been bingeing on cocaine and marijuana and reports that this m orning she felt very fatigued, anxious, and had onset of a pressure like retrosternal pain, nonradiating, 4/10 intensity, without aggravating or relieving factors. She denies shortness of breath, palpitations, diaphoresis, numbness, weakness/paralysis, changes in vision, ear ringing, nasal congestion, nasal discharge, loss of consciousness, and disorientation. Initial evaluation, the patient seems well, vitals were stable, she is ambulating without difficulty, and with no overt signs of distress. Chief Complaint: General Weakness Time Seen by MD: 11:32 Primary Care Provider: JUDY Reviewed Notes: Nurses Notes, Medications, Allergies (See list) Allergies: Coded Allergies: Metronidazole (Verified Allergy, Unknown, 03/06/25) Uncoded Allergies: FLGYL (Allergy, Unknown, 08/25/24) Home Meds Reported Medications Aspirin (Asa) 81 Mg Ch, 162 MG PO DAILY 04/13/11 Information Source: Patient Mode of Arrival: Ambulatory Severity: None Timing: Hours Duration: Since onset Prehospital treatment: None Past Medical History PAST MEDICAL HISTORY: Anxiety, High Lipids, HTN Past Medical History (Other): Prediabetes, thyroid nodules, substance use Surgical History: Hysterectomy LEAD PROGRAMMER ANALYST History: No Pertinent LEAD PROGRAMMER ANALYST History Family History Family History: Reviewed,noncontributory to illness Social History Smoker: Cigarettes, Greater Than 1 Pack/Day Alcohol: Occasionally Drugs: Cocaine, Marijuana Lives In: Home Constitutional: reports: fatigue; denies: chills, diaphoresis, fever, malaise, sweats, weakness EENTM: reports: tearing; denies: blurred vision, double vision, ear bleeding, ear discharge, ear drainage, ear pain, ear ringing, eye pain, eye redness, hearing loss, mouth pain, nasal discharge, nose bleeding, nose congestion, nose pain, photophobia, throat pain, throat swelling Respiratory: denies: cough, hemoptysis, orthopnea, shortness of breath, wheezing Cardiovascular: reports: chest pain; denies: dizzy spells, diaphoresis, Dyspnea on exertion, edema, irregular heart beat, left arm pain, lightheadedness, palpitations Gastrointestinal: denies: abdomen distended, abdominal pain, blood streaked bow els, constipated, diarrhea, dysphagia, difficulty swallowing, hematemesis, melena, nausea, poor appetite, poor fluid intake, rectal bleeding, vomiting Genitourinary: denies: burning, dysuria, flank pain, frequency, hematuria, incontinence, pain, urgency Neurological: denies: dizziness, fainting, headache, numbness, paresthesia, pre-existing deficit, seizure, speech problems, tingling, tremors, weakness Musculoskeletal: denies: back pain, joint pain, joint swelling, muscle pain, muscle stiffness, neck pain Integumetry: denies: bruises, laceration, lesions, lumps, rash, wounds Psychiatric: reports: anxiety Physical Exam General Appearance: No Apparent Distress HEENT: Normal ENT Inspection, PERRL/EOMI, Pharynx Normal Neck: Full Range of Motion, Non-Tender, Normal Inspection Respiratory: Chest Non-Tender, Lungs Clear, No Accessory Muscle Use, No Respiratory Distress, Normal Breath Sounds Cardiovascular: No Edema, No Murmur, Normal Peripheral Pulses, Regular Rate/Rhythm Breast Exam: Deferred Gastrointestinal: Non Tender, Normal Bowel Sounds, Soft Genitalia: Deferred Pelvic: Deferred Rectal: Deferred Extremities: Normal capillary refill, Normal inspection, Normal range of motion, Non-tender, No pedal edema Neurologic: Alert, Normal Affect, Normal Mood Cerebellar Function: Normal Reflexes: NOT DONE Skin: Normal Color Peripheral Pulses: 3+ dorsalis pedis (R), 3+ dorsalis pedis (L) Lymphatic: Other (No cervical lymph nodes) Was a procedure done? Was a procedure done?: No Differential Dx Considerations may include: Drug overdose, anxiety, [place], ACS, pneumonia, influenza, COVID X-Ray, Labs, Meds, VS Vital Signs Date Time Temp Pulse Resp B/P (MAP) Pulse Ox O2 Delivery O2 Flow Rate FiO2 07/30/25 16:19 98.9 82 18 148/87 (107) 100 98.9 07/30/25 11:51 89 07/30/25 11:31 97.9 92 18 142/95 98 97.9 Lab Test 07/30/25 14:13 07/30/25 12:15 07/30/25 12:06 07/30/25 12:03 Range/Units Troponin I High Sensitivity < 3 L < 3 L </=34 ng/L Urine Color Colorless Yellow Urine Clarity Clear Clear Urine pH 7.5 5.0-9.0 Urine Specific [place] 1.008 1.001-1.035 Urine Protein Negative Negative Urine Ketones Negative Negative Urine Blood Negative Negative /uL Urine Nitrite Negative Negative Urine Bilirubin Negative Negative Urine Urobilinogen Normal Negative mg/dL Urine Leukocyte Esterase Negative Negative /uL Urine RBC 1 0 - 4 /hpf Urine Microscopic WBC 2 0-5 /HPF Urine Squamous Epithelial Cells Few <5 /hpf Urine Bacteria None seen None Seen /hpf Urine Glucose Normal Normal mg/dL White Blood Count 8.6 4.4-10.8 10^3/uL Red Blood Count 5.45 H 4.0-5.20 10^6/uL Hemoglobin 15.2 12.2-16.2 g/dL Hematocrit 45.7 36.0-46.0 % Mean Corpuscular Volume 83.9 80.0-100.0 fL Mean Corpuscular Hemoglobin 27.9 L 28.0-32.0 pg Mean Corpuscular Hemoglobin Concent 33.3 32.0-36.0 g/dL Red Cell Distribution Width 14.1 11.8-14.3 % Platelet Count 221 140-450 10^3/uL Mean Platelet Volume 9.0 6.9-10.8 fL Neutrophils (%) (Auto) 61.6 37.0-80.0 % Lymphocytes (%) (Auto) 28.4 10.0-50.0 % Monocytes (%) (Auto) 8.9 0.0-12.0 % Eosinophils (%) (Auto) 0.5 0.0-7.0 % Basophils (%) (Auto) 0.6 0.0-2.0 % Neutrophils # (Auto) 5.3 1.6-8.6 10 ^3/uL Lymphocytes # (Auto) 2.4 0.4-5.4 10 ^3/uL Monocytes # (Auto) 0.8 0-1.3 10 ^3/uL Eosinophils # (Auto) 0 0-0.8 10 ^3/uL Basophils # (Auto) 0.1 0-0.2 10 ^3/uL Nucleated Red Blood Cells 0.1 % Sodium Level 139 136-145 mmol/L Potassium Level 3.8 3.5-5.1 mmol/L Chloride Level 102 98-107 mmol/L Carbon Dioxide Level 25 20-31 mmol/L Anion Gap 12 5-15 Blood Urea Nitrogen 6 L 9-23 mg/dL Creatinine 0.78 0.550-1.02 mg/dL Glomerular Filtration Rate Calc 90 >90 mL/min BUN/Creatinine Ratio 7.7 L 10.0-20.0 Serum Glucose 109 H 74-106 mg/dL Calcium Level 9.9 8.7-10.4 mg/dL Current Medications Medications (Trade) Dose Ordered Sig/Geovanna Route Start Time Stop Time Status Last Admin Sodium Chloride 1,000 ml @ 1,000 mls/hr Q1H ONCE IV 07/30/25 12:15 07/30/25 13:14 DC 07/30/25 12:15 The patient's CBC and chemistry panel are within normal limits. The urine test is negative The chest x-ray is negative. The patient is being discharged The patient will follow up with the primary care doctor The patient will return to the emergency department's condition worsens. The troponin level is negative At this time the patient is discharged Images Reviewed?: Images reviewed and evaluated by me Time of 1ST Reevaluation: 14:02 Reevaluation 1ST: Unchanged Patient Education/Counseling: Diagnosis, Treatment, Prognosis, Need For Follow Up Family Education/Counseling: No Family Present Comments Patient came in with chief complaint of generalized weakness, anxiety, and chest pain On initial evaluation, the patient seemed well, was hemodynamically stable, ambulating without difficulty, without overt signs of distress Physical examination without positive findings CBC, BMP, troponins, and UA are without significant finding Chest x-ray shows no acute intrapulmonary process EKG shows sinus rhythm She was given NS 1000 cc bolus On re-evaluation, the patient felt well, vitals continued to be stable The patient was considered stable for discharge Counseling for cessation of drug use was provided during this visit All findings, implications, and plan of care was discussed with the patient SEPSIS Sepsis Screen Date sepsis recognized/suspect: Jul 30, 2025 Time Sepsis recognized/suspect: 1134 Recent Procedure: No On Antibiotic Therapy: No Respiratory Rate >20: No Heart Rate >90: Yes Temp<36 C (96.8 F) or >38.3 C: No SBP <90 or MAP <65 mmHG: No New Acute Mental Status Change: No Is the patient on CPAP, BIPAP,: No Physician Orders Chest Portable (07/30/25 11:35) Electrocardigram (07/30/25 12:35) Electrocardigram (07/30/25 14:35) Vital Signs Date Time Temp Pulse Resp B/P (MAP) Pulse Ox O2 Delivery O2 Flow Rate FiO2 07/30/25 16:19 98.9 82 18 148/87 (107) 100 98.9 07/30/25 11:51 89 07/30/25 11:31 97.9 92 18 142/95 98 97.9 Laboratory Tests Test 07/30/25 12:06 White Blood Count 8.6 10^3/uL (4.4-10.8) Medications Medications Dose Ordered Sig/Geovanna Route Start Time Stop Time Status Last Admin Dose Admin Sodium Chloride 1,000 ml @ 1,000 mls/hr Q1H ONCE IV 07/30/25 12:15 07/30/25 13:14 DC 07/30/25 12:15 Departure 1 Departure Time of Disposition: 15:20 Impression: Primary Impression: Cocaine-induced anxiety disorder Additional Impressions: Musculoskeletal chest pain Polysubstance abuse Disposition: HOME / SELF CARE / HOMELESS Condition: Fair Additional Instructions: He presented to the ED today with chief complaint of generalized weakness, anxiety, and chest pain Your workup including a CBC, BNP, urinalysis, troponins, EKG, and chest x-ray are benign On review of data, it is very unlikely you are presenting with a myocardial infarction, ACS, pericarditis, pulmonary embolism, or stroke You were given IV fluids for hydration Your symptoms may be due to many things, including anxiety and drug use On re-evaluation, you seem well and your vitals continued to be stable We recommend full cessation of illicit substance use We recommended to follow up with your PCP within 1-3 days If your symptoms persist/worsen or should you have any further questions or concerns please return to the emergency department for evaluation Discharged With: Self Critical Care Note Critical Care Time?: No Stability Stability form required: No Heart Score Heart Score: Heart Score Response (Comments) Value History N/A 0 EKG N/A 0 Age N/A 0 Risk Factors N/A 0 Troponin N/A 0 Total 0 ALFREDO ROSS RESIDENT Jul 30, 2025 12:05 CHRISTINE LOMELI MD Jul 30, 2025 14:02
[2025-07-30] MEDS: SODIUM CHLORIDE 0.9% 1,000 ML IV ONE (12:15)
--- NOTE | 2025-07-30 12:21 | DVH ---
EXAM: XY CHEST PORTABLE Indication: CP Technique: Single frontal view of the chest was obtained Comparison: XY CHEST PORTABLE on DOS: 04/22/25, XY CHEST XRAY 1 VIEW on DOS: 04/08/25, XR CHEST 1 VIEW on DOS: 04/05/25, XY CHEST PORTABLE on DOS: 01/10/25, XR CHEST 2 VIEWS on DOS: 12/04/22 FINDINGS: Lines and Tubes: None Lungs: No focal consolidation. Pleura: No effusion. No pneumothorax. Cardiomediastinal contours: Unremarkable Bones: No acute osseous abnormality. IMPRESSION: No acute cardiopulmonary disease.
[2025-07-30 12:27] LABS: Hematocrit 45.7 % (36.0-46.0); Hemoglobin 15.2 g/dL (12.2-16.2); Mean Corpuscular Hemoglobin 27.9 pg (28.0-32.0); Mean Corpuscular Volume 83.9 fL (80.0-100.0); Nucleated Red Blood Cells % 0.1 %
[2025-07-30 12:31] LABS: Chloride 102 mmol/L (98-107); Potassium 3.8 mmol/L (3.5-5.1); Sodium 139 mmol/L (136-145)
[2025-07-30 12:32] LABS: Anion Gap 12 (5-15); Carbon Dioxide 25 mmol/L (20-31)
[2025-07-30 12:33] LABS: Calcium 9.9 mg/dL (8.7-10.4)
[2025-07-30 12:38] LABS: BUN/Creatinine Ratio 7.7 (10.0-20.0)
[2025-07-30 12:39] LABS: Blood Urea Nitrogen 6 mg/dL (9-23); Glucose 109 mg/dL (74-106)
[2025-07-30 13:41] LABS: Urine Protein, UAD Negative (Negative)
[2025-07-30 16:19] VITALS: BP 148/87; PULSE 82; RESP 18; TEMP 98.9; O2SAT 100
== END 2025-07-30 16:21 | disposition home or self-care (01) ==
LOC: ER 11:25
DX: F19.10 Other psychoactive substance abuse, uncomplicated (principal); F41.9 Anxiety disorder, unspecified; R07.89 Other chest pain; I10 Essential (primary) hypertension; F17.210 Nicotine dependence, cigarettes, uncomplicated; Z90.710 Acquired absence of both cervix and uterus; Z88.1 Allergy status to other antibiotic agents; Z79.899 Other long term (current) drug therapy
CPT/HCPCS: 36415; 71045; 80048; 81001; 84484; 85025; 93005; 96360; 96361; 99285; J7030

== ENCOUNTER 2025-08-26 09:27 | Emergency (ER) | payer BC, MEDICARE, MEDICAID ==
[~2025-08-26] VITALS: Ht 162.6 cm; Wt 72.3 kg
[2025-08-26 09:30] VITALS: BP 137/87; RESP 18; TEMP 98.1; O2SAT 100
[2025-08-26 09:40] VITALS: PULSE 85
--- NOTE | 2025-08-26 16:28 | ECG ---
[facility] Test Date: 2025-08-26 Test Time: 09:40:05 Pat Name: KENISHA MCMILLAN Department: ED Room: Gender: F Direct Marketing Specialist: BHAVYA : 1970 Requested By: GIOVANNA GUILLEN Order Number: [id number] Reading MD: Al Dexter Measurements Intervals [place] Rate: 85 P: 63 GA: 153 QRS: 40 QRSD: 100 T: 53 QT: 363 QTc: 432 Interpretive Statements Sinus rhythm Electronically Signed On 08-27-2025 20:09:38 PST by Al Dexter Please click the below link to view image of tracing.
== END 2025-08-26 10:56 | disposition left against medical advice (07) ==
LOC: ER 09:27
DX: R06.02 Shortness of breath (principal); R53.1 Weakness; Z53.21 Procedure and treatment not carried out due to patient leaving prior to being seen by health care provider
CPT/HCPCS: 93005

== ENCOUNTER 2025-09-12 11:30 | Emergency (ER) | payer BC, MEDICARE, MEDICAID ==
[~2025-09-12] VITALS: Ht 162.6 cm; Wt 74.1 kg
[2025-09-12 11:35] VITALS: BP 137/90; RESP 18; TEMP 97.5; O2SAT 97
[2025-09-12 12:37] VITALS: PULSE 91
--- NOTE | 2025-09-12 12:37 | ED.PDOC ---
HPI Comments 55 y.o female with medical history of prediabetes, hypertension, thyroid nodules, GERD, and substance use, presents to the ED for a chief complaint of substernal chest pain associated with SOB and dizziness that started one day ago. Patient describes pain as a tightness sensation that is non radiating, constant and has no alleviating factors. Patient denies any nausea, vomiting, fever, chills or leg swelling. Patient admits to smoking more than 2 packs of cigarettes per day. Chief Complaint: Chest Pain Time Seen by MD: 12:12 Primary Care Provider: JUDY Reviewed Notes: Nurses Notes, Medications, Allergies Allergies: Coded Allergies: Metronidazole (Verified Allergy, Unknown, 03/06/25) Uncoded Allergies: FLGYL (Allergy, Unknown, 08/25/24) Home Meds Reported Medications Aspirin (Asa) 81 Mg Ch, 162 MG PO DAILY 04/13/11 Information Source: Patient Mode of Arrival: Ambulatory Severity: Moderate Timing: Days (1) Duration: Since onset Location: Substernal Radiation: No Radiation Quality: Tightness Onset: At Rest Cardiac Risk Factors: Hyperlipidemia, HTN PE Risk Factors: None History of: None Modifying Factors: Nothing Associated Signs and Symptoms: SOB Past Medical History PAST MEDICAL HISTORY: Anxiety, High Lipids, HTN Surgical History: Hysterectomy ENVIRONMENTAL HEALTH SAFETY ENGINEER History: No Pertinent ENVIRONMENTAL HEALTH SAFETY ENGINEER History Family History Family History: Reviewed,noncontributory to illness Social History Smoker: Cigarettes, Greater Than 1 Pack/Day Alcohol: Occasionally Drugs: Marijuana Lives In: Home Constitutional: denies: chills, diaphoresis, fatigue, fever, malaise, sweats, weakness, others EENTM: denies: blurred vision, double vision, ear bleeding, ear discharge, ear drainage, ear pain, ear ringing, eye pain, eye redness, hearing loss, mouth pain, mouth swelling, nasal discharge, nose bleeding, nose congestion, nose pain, photophobia, tearing, throat pain, throat swelling, voice changes, others Respiratory: reports: SOB at rest, shortness of breath, SOB with excertion; denies: cough, hemoptysis, orthopnea, stridor, wheezing, others Cardiovascular: reports: chest pain; denies: dizzy spells, diaphoresis, Dyspnea on exertion, edema, irregular heart beat, left arm pain, lightheadedness, palpitations, PND, syncope, others Gastrointestinal: denies: abdomen distended, abdominal pain, blood streaked bowels, constipated, diarrhea, dysphagia, difficulty swallowing, hematemesis, melena, nausea, poor appetite, poor fluid intake, rectal bleeding, rectal pain, vomiting, others Genitourinary: denies: abnormal vagina bleeding, burning, dyspareunia, dysuria, flank pain, frequency, hematuria, incontinence, pain, , vagina discharge, urgency, others Neurological: reports: dizziness; denies: fainting, headache, left sided numbness, left sided weakness, numbness, paresthesia, pre-existing deficit, right sided numbness, right sided weakness, seizure, speech problems, tingling, tremors, weakness, others Musculoskeletal: denies: back pain, gout, joint pain, joint swelling, muscle pain, muscle stiffness, neck pain, others Integumetry: denies: bruises, change in color, change in hair/nails, dryness, laceration, lesions, lumps, rash, wounds, others Allergic/Immunocompromised: denies: Difficulty Healing, Frequent Infections, Hives, Itching, others Hematologic/Lymphatic: denies: anemia, blood clots, easy bleeding, easy bruising, swollen glands, others Endocrine: denies: excessive hunger, excessive sweating, excessive thirst, excessive urination, flushing, intolerance to cold, intolerance to heat, unexplained weight gain, unexplained weight loss, others Psychiatric: denies: anxiety, bipolar disorder, depression, hopeless, panic disorder, schizophrenia, sleepless, suicidal, others All Other Systems: Reviewed and Negative Physical Exam General Appearance: Moderate Distress HEENT: Normal ENT Inspection, Pharynx Normal, TMs Normal Neck: Full Range of Motion, Non-Tender, Normal, Normal Inspection Respiratory: Chest Non-Tender, Lungs Clear, No Accessory Muscle Use, No Respiratory Distress, Normal Breath Sounds Cardiovascular: No Edema, No JVD, No Murmur, No Gallop, Normal Peripheral Pulses, Regular Rate/Rhythm Breast Exam: Deferred Gastrointestinal: No Organomegaly, Non Tender, No Pulsatile Mass, Normal Bowel Sounds, Soft Genitalia: Deferred Pelvic: Deferred Rectal: Deferred Extremities: No calf tenderness, Normal capillary refill, Normal inspection, Normal range of motion, Non-tender, No pedal edema Musculoskeletal : Apperance: Normal Neurologic: Alert, filter worker II-XII nml as Tested, No Motor Deficits, Normal Affect, Normal Mood, No Sensory Deficits Cerebellar Function: Normal Reflexes: Normal Skin: Dry, Normal Color, Warm Peripheral Pulses: 3+ Radial (R), 3+ Radial (L) Lymphatic: No Adenopathy EKG EKG : Pulse Rate (adult): 91 Cardiac Rhythm: NSR Was a procedure done? Was a procedure done?: No CP Differential Dx Differential Diagnosis: A-fib, A-Flutter, Angina, Anxiety / Panic Attack, Atrial Dysrhythmia, Electrolyte Disorder, N/A Differential Diagnosis: Angina, Chest Wall Pain, Cholelithiasis, Costochondritis, Pericarditis, Pneumonia, Pulmonary Embolus X-Ray, Labs, Meds, VS Vital Signs Date Time Temp Pulse Resp B/P (MAP) Pulse Ox O2 Delivery O2 Flow Rate FiO2 09/12/25 12:37 91 09/12/25 11:43 91 09/12/25 11:35 97.5 93 18 137/90 97 97.5 Patient alert. Came in because of shortness a breath. She does not want any blood work. Saturation pristine on room air. Heart rate within normal limits. Blood pressure within normal limits. No leg swelling. No calf tenderness. No discoloration. She is comfortable. Was told to follow up with her primary care physician. Was told to come back if there is any problem. Time of 1ST Reevaluation: 12:32 Reevaluation 1ST: Unchanged Patient Education/Counseling: Diagnosis, Treatment, Prognosis Family Education/Counseling: No Family Present SEPSIS Sepsis Screen Date sepsis recognized/suspect: Sep 12, 2025 Time Sepsis recognized/suspect: 1137 Recent Procedure: No On Antibiotic Therapy: No Respiratory Rate >20: No Heart Rate >90: No Temp<36 C (96.8 F) or >38.3 C: No SBP <90 or MAP <65 mmHG: No New Acute Mental Status Change: No Is the patient on CPAP, BIPAP,: No Physician Orders Complete Blood Count (09/12/25 11:38) Chest Two Views Routine (09/12/25 12:15) Urinalysis (09/12/25 11:38) Troponin-I Hs (09/12/25 11:38) Electrocardigram (09/12/25 11:38) Troponin-I Hs (09/12/25 12:38) Troponin-I Hs (09/12/25 14:38) Electrocardigram (09/12/25 12:38) Electrocardigram (09/12/25 14:38) Basic Metabolic Panel (09/12/25 11:38) Vital Signs Date Time Temp Pulse Resp B/P (MAP) Pulse Ox O2 Delivery O2 Flow Rate FiO2 09/12/25 12:37 91 09/12/25 11:43 91 09/12/25 11:35 97.5 93 18 137/90 97 97.5 Departure 1 Departure Time of Disposition: 13:08 Impression: Primary Impression: Pneumonitis Disposition: 01 HOME / SELF CARE / HOMELESS Condition: Good Discharged With: Self Critical Care Note Critical Care Time?: No Stability Stability form required: No Heart Score Heart Score: Heart Score Response (Comments) Value History Slightly Suspicious 0 EKG Normal 0 Age 45-64 1 Risk Factors 1 or 2 risk factors 1 Troponin Normal limit 0 Total 2 I personally scribed for HIEN PARIS MD ([email or web address]) on 09/12/25 at 12:37. Electronically submitted by Maddie De La Garza ([facility]). HIEN PARIS MD Sep 12, 2025 12:37
--- NOTE | 2025-09-12 12:59 | DVH ---
XY CHEST TWO VIEWS ROUTINE CLINICAL HISTORY: CP COMPARISON: XR CHEST 2 VIEWS on DOS: 12/04/22, XR CHEST 2 VIEWS on DOS: 03/12/21 TECHNIQUE: Frontal and lateral view of the chest was obtained FINDINGS: Lines and Tubes: None Lungs: No focal consolidation. Pleura: No effusion. No pneumothorax. Cardiomediastinal contours: Unremarkable Bones: No acute osseous abnormality. IMPRESSION: 1. No acute cardiopulmonary disease. 2. No significant change from 07/30/2025.
== END 2025-09-12 14:52 | disposition home or self-care (01) ==
LOC: ER 11:30
DX: J18.9 Pneumonia, unspecified organism (principal); I10 Essential (primary) hypertension; F41.9 Anxiety disorder, unspecified; E78.5 Hyperlipidemia, unspecified; F17.210 Nicotine dependence, cigarettes, uncomplicated; Z90.710 Acquired absence of both cervix and uterus; Z79.82 Long term (current) use of aspirin; Z88.1 Allergy status to other antibiotic agents
CPT/HCPCS: 71046